=== PATIENT | male | born 1965 | race Caucasian/White ===

== ENCOUNTER 2017-10-14 11:02 | Emergency (ER) | payer MEDICAID, SELFPAY ==
[2017-10-14 11:04] VITALS: BP 123/95; PULSE 106; RESP 20; TEMP 37.3; O2SAT 95; BMI 32.8
--- NOTE | 2017-10-14 11:29 | CT_ITS ---
STUDY: CT ABDOMEN AND PELVIS WITHOUT CONTRAST REASON FOR EXAM: Male, 52 years old. Right flank pain. RADIATION DOSAGE (If Supplied By Facility): CTDIvol = ( 14.02 ) mGy, DLP = ( 830.16 ) mGycm TECHNIQUE: Transaxial images were obtained from the dome of the diaphragm to the symphysis pubis without oral contrast, and without intravenous contrast. Sagittal and coronal images were reconstructed. Individualized dose optimization techniques were used for this CT. COMPARISON: Comparison is made with prior study dated March 05, 2016. FINDINGS: Mild degree of increased linear markings in the lower lobes slightly more prominent on the right side suggestive of bibasilar atelectasis. The visualized portions of the heart are within normal limits. Normal liver. Normal gallbladder and extrahepatic biliary system. Normal spleen. Normal pancreas. Normal bilateral adrenal glands. Punctate calcification in the midpole calyx of the right kidney. Punctate calcifications upper midportion of the left kidney as well as in the lower pole calyx of the left kidney. Normal visualized stomach. Normal small intestine. There are scattered colonic diverticula consistent with diverticulosis. The appendix is visualized and appears normal. Normal abdominal aorta. Normal inferior vena cava. Normal retroperitoneum. Normal urinary bladder. There is evidence of bilateral vasectomies. Normal abdominal wall. There are mild degenerative changes of the visualized lumbar spine. CT/Abdomen/Pelvis without Cont IMPRESSION: Punctate bilateral nonobstructive intrarenal calculi. Electronically Signed: Rl Conway MD at 12:34 EDT Tel [phone], Service support ,
[2017-10-14] MEDS: 0.9% Normal Saline 1,000 ML 1000 ML IV (11:50)
[2017-10-14] MEDS: Ketorolac 30 MG/ML Syringe IV (11:51)
[2017-10-14] MEDS: Ondansetron 4 MG/2 ML Vial IV (11:51)
[2017-10-14 11:56] VITALS: BP 132/90; PULSE 98; RESP 14; O2SAT 97
[2017-10-14 11:57] LABS: Red Blood Cells-Urine 0 SEEN /hpf (0-5)
[2017-10-14 11:59] LABS: Color, Urine Yellow (Yellow); Glucose, Dipstick Normal (Normal); Ketone-Dipstick 5 mg/dl (Negative); Leukocyte Esterase-Dipstick 25 /ul (Negative); Nitrite-Dipstick Negative (Negative); Occult Blood-Urine Negative /ul (Negative); Protein-Dipstick 30 mg/dl (Negative); Specific Gravity, Urine 1.025 (1.002-1.030); Urine Bilirubin Dipstick Negative (Negative); Urine Clarity Clear (Clear); Urine Urobilinogen 8 mg/dl (Normal)
[2017-10-14 12:00] LABS: Absolute Lymphocyte Count 1.19 X10^3/ul (0.83-4.51); Absolute Neutrophil Count 2.5 X10^3/uL (2.0-7.7); Basophil# 0.02 X10^3/uL; Basophil% 0.4 % (0-1); Eosinophil# 0.11 X10^3/uL; Eosinophils% 2.3 % (0-5); Hematocrit 46.5 % (40-54); Hemoglobin 15.8 g/dl (13.0-16.5); Lymphocyte # 1.19 X10^3/ul (4.0); Lymphocyte % 25.1 % (19-41); Mean Corpuscular Hgb 31.5 pg (27.0-32.0); Mean Corpuscular Volume 92.6 fL (80-94); Mean Platelet Vol. 9.3 fl (6.2-12.0); Monocyte# 0.89 X10^3/uL; Monocyte% 18.7 % (0-10); Neutrophil # 2.53 X10^3/uL (2.7-7.7); Neutrophil % 53.3 % (47-70); Platelet Count 233 K/mm3 (150-450); RBC Distribution Width CV 13.2 % (11.6-14.6); RBC Distribution Width SD 43.7 fl (35.1-43.9); Red Blood Count 5.02 M/mm3 (4.6-6.2); White Blood Count 4.8 K/mm3 (4.4-11.0)
[2017-10-14 12:02] LABS: POSITIVE COUNT NO; POSITIVE DIFFERENTIAL NO; POSITIVE MORPHOLOGY NO
[2017-10-14 12:07] LABS: Bacteria 1+ /hpf (None Seen); Mucous, Urine 2+ /hpf (<or=2+); Squamous Epithelial Cells - UA 0-5 SEEN /hpf (0-5); White Blood Cells 0-5 SEEN /hpf (0-5)
[2017-10-14 12:21] LABS: AST(SGOT) 16 U/L (15-37); Alanine Aminotransfer ALT/SGPT 33 U/L (16-61); Albumin, Serum 3.3 g/dL (3.2-5.0); Alkaline Phosphatase 103 U/L (45-117); Anion Gap 6 (5-15); BUN 13 mg/dL (7-18); BUN/Creat Ratio 13.1 RATIO (10-20); Bilirubin, Direct 0.23 mg/dL (0.00-0.30); Chloride 107 mmol/L (98-107); EST Glomerular Filtration Rate 84 mL/min (>60); Est Glom Filt Rate - Afr Amer 102 mL/min (>60); Estimated Creatinine Clearance 90.24 ml/min; Globulin 3.8 g/dL (2.2-4.2); Glucose 99 mg/dL (74-106); Lipase 102 U/L (73-393); Protein, Total 7.1 g/dL (6.4-8.2); Sodium Level 142 mmol/L (136-145)
--- NOTE | 2017-10-14 12:43 | ED.VISSUMM ---
- ER Visit Summary Date of Service: 10/14/17 Chief Complaint: Right flank pain History of Present Illness: The patient is a [address] Thomas. He reports he has right flank pain that began 3 days ago. It radiates around the right lower abdomen. Is a sharp, stabbing pain is 1010 at worst 9-10 currently. Is worsened by nothing relieved by nothing. Reports he been nausea and vomiting 7-8 times. No blood in his emesis. He has had diarrhea twice today. No blood in his stools or black tarry stools. Is also had dysuria and frequency. No hematuria. Reports that this is similar to when he had a kidney stone in the past. Physical Examination: Vitals: Stable. Afebrile. General: Well-nourished and well-developed. Head: Normocephalic atraumatic. Neck: Supple, no lymphadenopathy. No JVD. Nontender. Cardiovascular: Regular rate and rhythm. No murmurs. Respiratory: No respiratory distress. Clear to auscultation bilaterally. Abdominal: Soft, mild left lower quadrant tenderness palpation, nondistended, normal bowel sounds. No guarding, rebound, or peritoneal signs. Back: Mild right CVA tenderness Extremities: Nontender, no edema. Skin: Normal color, no rash. Neurologic: Alert and oriented ?3. Cranial nerves II through XII are intact. Normal strength and sensation. Psych: Normal affect. Test Results: CBC is more for monocytes and 19. Chem-7 is more for calcium 8.0. LFTs are normal. Lipase normal. UA is negative. CT flank shows a normal appendix and no acute disease. Emergency Department Course and Treatment: She was treated morphine, Zofran, Toradol IV. He is resting comfortably. Treatment Plan: An [facility] report was obtained which shows he has active prescriptions for both oxycodone and tramadol. He will be discharged on naproxen and instructed to follow-up with Dr. Thomas in 1 to 2 days if not improving. Disposition: To home in improved and stable condition. Impression: 1. Right flank pain, uncertain cause. This note was generated with [employer] software. It may contain incorrect words, spelling, and punctuation that were not noted in review of the chart prior to signing ED Disposition - Plan for ED Patient: Disposition: Home or Assisted Living Chief Complaint: Flank Pain Instructions: ED Flank Pain Uncertain Cause Prescriptions: Naproxen [Naprosyn] 500 mg PO BID PRN #20 tablet Referrals: Troy Thomas DO [Primary Care Provider] - 3-5 Days if not improving
[2017-10-14 13:02] VITALS: BP 128/85; PULSE 90; RESP 14; O2SAT 99
== END 2017-10-14 13:08 | disposition home or self-care (01) ==
PROVIDERS: Emergency Provider Emergency Medicine; Family Provider Family Medicine; PCP Family Medicine
DX: R10.31 Right lower quadrant pain (principal); R11.2 Nausea with vomiting, unspecified; R19.7 Diarrhea, unspecified; R30.0 Dysuria; R35.0 Frequency of micturition; Z87.442 Personal history of urinary calculi; Z86.718 Personal history of other venous thrombosis and embolism; Z79.82 Long term (current) use of aspirin; Z79.01 Long term (current) use of anticoagulants; Z79.899 Other long term (current) drug therapy
CPT/HCPCS: 74176; 80048; 80076; 81001; 83690; 85025; 96361; 96374; 96375; 99283; J7030; J2405

== ENCOUNTER 2018-02-23 20:56 | Emergency (ER) | payer MEDICAID, SELFPAY ==
[2018-02-23 20:57] VITALS: BP 125/78; PULSE 60; RESP 14; TEMP 36.4; O2SAT 100; BMI 33.2
--- NOTE | 2018-02-23 21:38 | US_ITS ---
STUDY: VENOUS DOPPLER ULTRASOUND - RIGHT LOWER EXTREMITY REASON FOR EXAM: Male, 52 years old. Right sided pain in the plantar area of the foot extending into the posterior calf TECHNIQUE: Ultrasound evaluation of the deep vein system to include mccrary-scale imaging and compression was performed. Mccrary-scale imaging and Doppler sonographic evaluation, including duplex spectral analysis and qualitative color flow sonography, was performed. COMPARISON: None. FINDINGS: Common Femoral Vein: Normal compression, spontaneity and augmentation. Normal color Doppler. Common Femoral Vein/Greater Saphenous Junction: Normal compression, spontaneity and augmentation. Normal color Doppler. Deep Femoral Vein: Normal compression, spontaneity and augmentation. Normal color Doppler. Femoral Proximal: Normal compression, spontaneity and augmentation. Normal color Doppler. Femoral Middle: Normal compression, spontaneity and augmentation. Normal color Doppler. Femoral Distal: Normal compression, spontaneity and augmentation. Normal color Doppler. Popliteal Vein: Normal compression, spontaneity and augmentation. Normal color Doppler. Posterior Tibial Vein: Normal compression, spontaneity and augmentation. Normal color Doppler. Peroneal Vein: Normal compression, spontaneity and augmentation. Normal color Doppler. However examination of the peroneal vein is limited US/Venous Duplex Imag/Limited/Uni IMPRESSION: No sonographic evidence for deep venous thrombosis Electronically Signed: Yassine Mixon, at 22:27 EDT Tel , Service support ,
[2018-02-23] MEDS: HYDROcodone Bitartrate/Apap 5/325 Tablet PO (22:37)
[2018-02-23] MEDS: predniSONE 20 MG Tablet 60 MG PO (22:38)
--- NOTE | 2018-02-23 22:59 | ED.VISSUMM ---
- ER Visit Summary Date of Service: 02/23/18 Chief Complaint: Right foot pain History of Present Illness: The patient is a 52 M who complains of pain in the palm of his right foot for the past several days. He states it is worse first thing in the morning when he gets up. Pain is now radiating up the back of his right calf. He is currently on Eliquis due to clots in his right leg. He denies chest pain or shortness of breath. Physical Examination: Vital signs unremarkable. Patient sitting upright in bed no acute distress. Heart is regular rate and rhythm. Lung sounds are clear. Abdomen is soft nontender. Lower extreme examination reveals reproducible tenderness on the plantar surface of the right foot at the fascial insertion to the calcaneus. There is increased pain with dorsiflexion. He has mild tenderness of the distal calf. There is no significant edema. Test Results: Due to his history of clots, venous ultrasound of the leg was obtained and is negative at this time. Emergency Department Course and Treatment: Patient is given a dose of [place] on prednisone here while we are waiting testing. Clinically the patient has plantar fasciitis. He will be treated with a course of prednisone along with Naprosyn. He is known to Dr. Mat Hamilton will follow up with him as needed. Treatment Plan: [] Disposition: Discharge Impression: Plantar fasciitis right foot This note was generated with [employer] dictation software. It may contain incorrect words, spelling, and punctuation that were not noted in review of the chart prior to signing ED Disposition - Plan for ED Patient: Chief Complaint: Lower Extremity Injury Referrals: Troy Thomas DO [Primary Care Provider] -
--- NOTE | 2018-02-23 23:01 | ED.DEP ---
ED Disposition - Plan for ED Patient: Disposition: Home or Assisted Living Chief Complaint: Lower Extremity Injury Instructions: ED Plantar Fasciitis Prescriptions: Naproxen [Naprosyn] 500 mg PO BID PRN PRN #20 tablet PRN Reason: Pain Prednisone 10 mg PO UD #33 tablet Referrals: Mat Hamilton MD [STAFF PHYSICIAN] - As Needed
[2018-02-23 23:07] VITALS: RESP 18
== END 2018-02-23 23:07 | disposition home or self-care (01) ==
PROVIDERS: Emergency Provider Emergency Medicine; Family Provider Family Medicine; PCP Family Medicine
DX: M72.2 Plantar fascial fibromatosis (principal); E78.00 Pure hypercholesterolemia, unspecified; Z86.718 Personal history of other venous thrombosis and embolism; Z86.711 Personal history of pulmonary embolism; Z87.442 Personal history of urinary calculi; Z86.79 Personal history of other diseases of the circulatory system; Z79.01 Long term (current) use of anticoagulants; Z79.82 Long term (current) use of aspirin; Z79.899 Other long term (current) drug therapy; Z87.891 Personal history of nicotine dependence
CPT/HCPCS: 93971; 99283

== ENCOUNTER 2018-04-26 20:45 | Emergency (ER) | payer MEDICAID, SELFPAY ==
[2018-04-26 20:45] VITALS: BP 124/85; PULSE 99; RESP 14; TEMP 36.6; O2SAT 97; BMI 30.8
[2018-04-26 21:46] VITALS: BP 141/98; PULSE 81; RESP 17; O2SAT 98
--- NOTE | 2018-04-26 22:08 | EKG12_ITS ---
Test Reason : CP Blood Pressure : / mmHG Vent. Rate : 096 BPM Atrial Rate : 096 BPM P-R Int : 156 ms QRS Dur : 092 ms QT Int : 332 ms P-R-T Axes : 041 066 054 degrees QTc Int : 419 ms Normal sinus rhythm Normal ECG Confirmed by ABHAY JOSE, MARY ([id number]), school photograph editor DEBBY MANNING ([id number]) on 04/28/2018 9:30:52 AM Referred By: RENATA Confirmed By:MARY BLANK MD
--- NOTE | 2018-04-26 22:18 | RAD_ITS ---
STUDY: X-RAY CHEST REASON FOR EXAM: Male, 52 years old. Chest pain. TECHNIQUE: Single AP portable view of the chest. COMPARISON: 09/06/2016. FINDINGS: The lungs are clear and expanded. There is no demonstrated pleural abnormality. There is borderline cardiomegaly. Normal mediastinum and darby. Normal visualized pulmonary arteries. Normal visualized aortic arch and descending thoracic aorta. Normal visualized thoracic spine. Normal visualized ribs, clavicles, and shoulders. There is no demonstrated abnormality of the visualized soft tissue structures of the upper abdomen. RAD/Chest 1 View (Portable) IMPRESSION: No acute chest disease. Electronically Signed: Keith Alford MD at 22:29 EDT , Service support ,
[2018-04-26] MEDS: Aspirin 81 MG TAB.CHEW 324 MG PO (22:25)
[2018-04-26 22:27] VITALS: BP 141/94; PULSE 80; RESP 19; O2SAT 98
[2018-04-26 22:38] LABS: Absolute Lymphocyte Count 2.41 X10^3/ul (0.83-4.51); Basophil# 0.03 X10^3/uL; Basophil% 0.5 % (0-1); Eosinophil# 0.19 X10^3/uL; Eosinophils% 2.9 % (0-5); Hematocrit 41.1 % (40-54); Hemoglobin 13.6 g/dl (13.0-16.5); Lymphocyte # 2.41 X10^3/ul (4.0); Lymphocyte % 36.7 % (19-41); Mean Corp Hgb Conc 33.1 g/gl (32-36); Mean Corpuscular Hgb 30.8 pg (27.0-32.0); Mean Platelet Vol. 10.1 fl (6.2-12.0); Monocyte# 0.96 X10^3/uL; Monocyte% 14.6 % (0-10); Neutrophil # 2.98 X10^3/uL (2.7-7.7); Neutrophil % 45.3 % (47-70); Platelet Count 225 K/mm3 (150-450); RBC Distribution Width CV 13.5 % (11.6-14.6); RBC Distribution Width SD 45.9 fl (35.1-43.9); Red Blood Count 4.42 M/mm3 (4.6-6.2); White Blood Count 6.6 K/mm3 (4.4-11.0)
[2018-04-26 22:39] LABS: POSITIVE COUNT NO; POSITIVE DIFFERENTIAL NO; POSITIVE MORPHOLOGY NO
[2018-04-26 22:42] LABS: Prothrombin Time (Protime)PT. 13.5 SECONDS (11.7-14.9)
[2018-04-26 22:43] LABS: Partial Thromboplast Time 33.4 Seconds (24.1-36.2)
[2018-04-26 22:46] LABS: D-Dimer Quantitative (DVT/PE) 0.92 FEU/ug/m (0.27-0.49)
[2018-04-26 22:47] LABS: Anion Gap 6 (5-15); BUN 11 mg/dL (7-18); BUN/Creat Ratio 11.6 RATIO (10-20); Calcium,Total 8.1 mg/dL (8.5-10.1); Chloride 108 mmol/L (98-107); Creatinine, Serum 0.95 mg/dL (0.70-1.30); EST Glomerular Filtration Rate 89 mL/min (>60); Est Glom Filt Rate - Afr Amer 107 mL/min (>60); Estimated Creatinine Clearance 94.99 ml/min; Glucose 90 mg/dL (74-106); Sodium Level 141 mmol/L (136-145)
[2018-04-26 23:06] VITALS: BP 143/87; PULSE 70; RESP 17; O2SAT 98
--- NOTE | 2018-04-26 23:35 | CT_ITS ---
STUDY: CTA CHEST REASON FOR EXAM: Male, 53 years old. Chest pain. Elevated d-dimer. RADIATION DOSAGE (If Supplied By Facility): CTDIvol = ( 16.17 ) mGy, DLP = ( 696.83 ) mGycm TECHNIQUE: The examination was performed with the intravenous administration of 100ml ml of Isovue 370 contrast material. Post-processing of the angiographic images was performed, with multiplanar reformation and 3D reconstruction. Individualized dose optimization techniques were used for this CT. COMPARISON: Chest x-ray April 26, 2018. CTA chest September 06, 2016. CTA chest January 01, 2016. FINDINGS: Normal enhancement of the main pulmonary artery and right and left pulmonary arteries. Normal enhancement of the bilateral peripheral pulmonary arteries. There is no demonstrated pulmonary embolism. Normal thoracic aorta and visualized great vessels. There is no demonstrated aortic dissection. There is now an elongated simple fluid collection within the anterior mediastinum, attenuation 4 Hounsfield units adjacent to the lateral aspect of aortic arch and measuring 5.7 x 1.4 cm increased in size since September 2016 and decreased in size since December 2015, axial image 26 series 2 and coronal images 137 through 164. Normal heart and pericardium. Normal mediastinum. Normal hilar regions. Normal visualized trachea and bronchi. The lungs are well expanded. Normal pulmonary parenchyma. Normal pleura. Normal chest wall structures. Mild degenerative changes of the thoracic spine. Normal visualized upper abdomen. CT/CTA Chest W/WO Contrast IMPRESSION: No acute findings in the chest, without a demonstrated pulmonary embolism or arterial dissection. 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 Electronically Signed: Jason Bueno MD at 0:51 EDT , Service support ,
--- NOTE | 2018-04-26 23:59 | ED.VISSUMM ---
- ER Visit Summary Date of Service: 04/26/18 Chief Complaint: Chest pain History of Present Illness: The patient is a 52 M who presents with chest pain for the past 2-3 hours. Patient states the pain began suddenly. Patient describes the pain as burning and stabbing. Patient states the pain is over the left side of his chest. Patient states nothing seems to make the pain better or worse. Patient states he did have an episode of diaphoresis and shortness of breath when the pain began. Patient also states he felt lightheaded at that time. Patient admits to a cough but denies any sputum production. Patient denies any fevers or chills. Patient denies any nausea or vomiting. Patient states he also had one episode of palpitations where he felt like his heart skips a beat. Patient has a history of PE and is on Eliquis. Physical Examination: Vital signs are stable. Patient is afebrile. Patient is in no acute distress. Oral mucosa is pink and moist. Neck is supple. Trachea is midline. There is no JVD or lymphadenopathy noted. Heart was regular rate and rhythm. Lungs are clear and equal bilaterally. There is good respiratory effort noted. Abdomen is soft. Bowel sounds are normal. There is no tenderness. Cranial nerves II through XII are intact. There are no focal motor or sensory deficits noted. The remaining physical exam is within normal limits. Test Results: EKG showed normal sinus rhythm with a rate of 96. There are no acute ST or T wave changes. D-dimer was slightly elevated at 0.92. CBC, basic metabolic profile, troponin were within normal limits. CTA of the chest was obtained due to the elevated d-dimer and was negative. Emergency Department Course and Treatment: Patient felt better on reevaluation. Patient was instructed to follow-up with his primary care physician in 7-10 days. Patient understood and was agreeable with the plan. All questions were answered. Disposition: Discharged home Impression: Chest pain of uncertain etiology This note was generated with [employer] dictation software. It may contain incorrect words, spelling, and punctuation that were not noted in review of the chart prior to signing ED Disposition - Plan for ED Patient: Disposition: Home or Assisted Living Chief Complaint: Chest Pain Diagnosis: Chest pain Instructions: ED Chest Pain Atypical Unkn Cause Referrals: Troy Thomas DO [Primary Care Provider] -
[2018-04-27 00:21] VITALS: BP 148/105; PULSE 72; RESP 18; O2SAT 97
[2018-04-27 01:14] VITALS: BP 147/95; PULSE 73; RESP 17; O2SAT 98
--- NOTE | 2018-04-27 01:15 | ED.RN ---
IV DC'ED, CATHETER INTACT, SMALL GAUZE DRESSING PLACED. DISCHARGE INSTRUCTIONS GIVEN TO AND REVIEWED WITH PATIENT, PATIENT DENIES QUESTIONS OR CONCERNS AND VOICES UNDERSTANDING OF DISCHARGE INSTRUCTIONS. PT AMBULATES OUT OF ROOM WITHOUT DIFFICULTY.
== END 2018-04-27 01:16 | disposition home or self-care (01) ==
PROVIDERS: Emergency Provider Emergency Medicine; Family Provider Family Medicine; PCP Family Medicine
DX: R07.9 Chest pain, unspecified (principal); R61 Generalized hyperhidrosis; R42 Dizziness and giddiness; R06.00 Dyspnea, unspecified; R05 Cough; R00.2 Palpitations; R79.89 Other specified abnormal findings of blood chemistry; G47.30 Sleep apnea, unspecified; Z86.711 Personal history of pulmonary embolism; Z79.01 Long term (current) use of anticoagulants; Z79.82 Long term (current) use of aspirin; Z79.899 Other long term (current) drug therapy
CPT/HCPCS: 71045; 71275; 80048; 84484; 85025; 85379; 85610; 85730; 93005; 99285; Q9967; A4216

== ENCOUNTER 2018-10-25 09:14 | Emergency (ER) | payer MEDICARE, MEDICAID, SELFPAY ==
[2018-10-13 15:26] VITALS: BMI 34.0
[2018-10-25 09:17] VITALS: BP 147/87; PULSE 114; RESP 18; TEMP 36.6; O2SAT 99; BMI 32.5
--- NOTE | 2018-10-25 09:33 | ED.VISSUMM ---
- ER Visit Summary Date of Service: 10/25/18 Chief Complaint: Cough and congestion History of Present Illness: The patient is a 53 M who presents with cough and congestion that has been getting worse over the past 3 days. Patient states she has been coughing up some green sputum. Patient states there is also some blood streaks in the sputum. Patient states he has had some epistaxis recently. Patient states he has pain in his chest with coughing. Patient denies any fevers. Patient admits to a headache. Physical Examination: Vital signs are stable except for mild tachycardia of 114. Patient is afebrile. Patient is in no acute distress. Tympanic membranes are clear bilaterally. Oral mucosa is pink and moist. Oropharynx shows some mild erythema and postnasal drainage. Nasal mucosa is congested. Neck is supple. Trachea is midline. There is no JVD noted. Heart was regular and tachycardic. Lungs are clear and equal bilaterally. Abdomen is soft. Bowel sounds are normal. There is no tenderness. Cranial nerves II through XII are intact. There are no focal motor or sensory deficits noted. Test Results: Rapid strep test was obtained and was positive. PA and lateral chest x-ray shows a right upper lobe infiltrate. Emergency Department Course and Treatment: Patient was given a prescription for Zithromax. Patient was instructed to drink plenty of fluids. Patient was instructed to take Tylenol or ibuprofen as needed for any fevers or chills. Patient was instructed to follow-up with his primary care physician in 5-7 days. Patient understood and was agreeable with the plan. All questions were answered. Disposition: Discharge home Impression: 1. Strep pharyngitis 2. Community-acquired pneumonia This note was generated with [employer] dictation software. It may contain incorrect words, spelling, and punctuation that were not noted in review of the chart prior to signing ED Disposition - Plan for ED Patient: Disposition: Home or Assisted Living Diagnosis: Strep pharyngitis, Community acquired pneumonia Instructions: ED Pneumonia Adult, ED Strep Pharyngitis Conf Prescriptions: Azithromycin [Zithromax Z-Brad] 250 mg PO UD #1 box Referrals: Troy Thomas DO [Primary Care Provider] - 5-7 Days
--- NOTE | 2018-10-25 09:40 | RAD_ITS ---
STUDY: X-RAY CHEST REASON FOR EXAM: Male, 53 years old. Cough. TECHNIQUE: PA and lateral views of the chest. COMPARISON: Comparison is made with prior study dated April 26, 2018. FINDINGS: Focal infiltrate in the anterior aspect of the right upper lobe. Stable scarring in the lingular segment of the left upper lobe. Normal size heart. Normal mediastinum and darby. Normal visualized pulmonary arteries. There is atherosclerotic tortuosity of the aortic arch and descending thoracic aorta. There are diffuse degenerative changes of the visualized thoracic spine. Normal visualized ribs, clavicles, and shoulders. There is no demonstrated abnormality of the visualized soft tissue structures of the upper abdomen. RAD/Chest PA and Lateral IMPRESSION: Focal infiltrate in the anterior aspect of the right upper lobe. Stable scarring in the lingular segment of the left upper lobe. Electronically Signed: Rl Conway, at 10:15 EDT , Service support ,
--- NOTE | 2018-10-25 10:04 | ED.RN ---
LAB RESULTED POSITIVE STREP
[2018-10-25 10:51] VITALS: RESP 19
== END 2018-10-25 10:53 | disposition home or self-care (01) ==
PROVIDERS: Emergency Provider Emergency Medicine; Family Provider Family Medicine; PCP Family Medicine
DX: J02.0 Streptococcal pharyngitis (principal); J18.9 Pneumonia, unspecified organism
CPT/HCPCS: 71046; 87077; 87880; 99282

== ENCOUNTER 2018-10-27 08:26 | Inpatient (IN) | payer MEDICARE, MEDICAID, SELFPAY ==
[2018-10-27] VITALS (14 sets, daily range): BP systolic 111–146; BP diastolic 71–98; PULSE 86–145; RESP 18–28; TEMP 36.6–39.4; O2SAT 94–96; BMI 33.3; BMI 31.6; BMI 31.7
--- NOTE | 2018-10-27 08:34 | RAD_ITS ---
STUDY: X-RAY CHEST REASON FOR EXAM: Male, 53 years old. Productive cough and fever. TECHNIQUE: Single AP portable view of the chest. COMPARISON: Comparison is made with prior study dated October 25, 2018. FINDINGS: EKG electrodes are seen. Since prior study, there has been progressive infiltration in the right perihilar and right upper lobe region as well as in the right lower lobe. Mild increased markings in the left lower lobe. Radiographic follow-up until resolution is recommended. There is no demonstrated pleural abnormality. Normal size heart. Normal mediastinum and darby. Normal visualized pulmonary arteries. There is atherosclerotic tortuosity of the aortic arch and descending thoracic aorta. There are diffuse degenerative changes of the visualized thoracic spine. Normal visualized ribs, clavicles, and shoulders. There is no demonstrated abnormality of the visualized soft tissue structures of the upper abdomen. RAD/Chest 1 View (Portable) IMPRESSION: Progressive infiltration in the right perihilar region as well as in the right upper lobe and right lower lobe. Radiographic follow-up is recommended. Mild increased markings at the left lung base suggestive of scarring. Electronically Signed: Rl Conway, at 10:03 EDT , Service support ,
--- NOTE | 2018-10-27 08:34 | EKG12_ITS ---
Test Reason : SOB Blood Pressure : / mmHG Vent. Rate : 128 BPM Atrial Rate : 128 BPM P-R Int : 138 ms QRS Dur : 088 ms QT Int : 302 ms P-R-T Axes : 047 105 051 degrees QTc Int : 440 ms Sinus tachycardia Rightward axis Borderline ECG Confirmed by ABHAY JOSE, MARY ([id number]), brands editor ABBEY GARVEY ([id number]) on 10/28/2018 1:07:26 PM Referred By: STEFANIA Confirmed By:MARY BLANK MD
--- NOTE | 2018-10-27 08:42 | ED.VIS.GEN ---
History of Present Illness Chief Complaint: Shortness of Breath Detail of Chief Complaint: Symptoms worse since Thursday Informant: Patient, Significant Other Onset: Days Context: Sudden Onset Timing: Continuous Quality: Shortness of breath, wheezing, JEAN, productive cough Location: Respiratory generalized Current Severity: Moderate Maximum Severity: Severe Worsened by: Activity Relieved by: Nothing Associated Symptoms: Fever, chills and review review of systems Narrative: Patient is a middle-aged male who is not a smoker who was seen on Thursday and diagnosed with strep pharyngitis and community acquired pneumonia. He was treated with Zithromax. He presents because he is more short of breath and his cough is worse. He also reports fever and chills. He complains of mild headache without photophobia, neck pain or neck stiffness. He denies rhinorrhea. He denies ear pain, decreased hearing or tinnitus. He does report dyspnea on exertion. Denies orthopnea or PND. He denies leg pain, swelling discoloration. He does have history of DVT and is on Eliquis. He denies any urologic or GI symptoms. - Past Medical History (1) Community acquired pneumonia Status: Acute (2) Strep pharyngitis Status: Acute (3) Bilateral pulmonary embolism Status: Acute (4) DVT (deep venous thrombosis) Status: Chronic (5) Hyperlipidemia Status: Chronic (6) Hypertension Status: Chronic Past Medical History - Allergies and Home Meds Allergies/Adverse Reactions: Allergies venom-honey bee [bee venom (honey bee)] Allergy (Verified 10/25/18 09:16) Anaphylaxis Primary Care Physician: Troy Thomas DO [Primary Care Provider] - Prior records reviewed: Yes Past Medical History: - - Recent ER visit, diagnosis and treatment Surgical History: no surgical history Lives: Spouse/ Significant Other Smoking Status: Never smoker Alcohol: None - Family History Maternal Family History: Family History (Last Reviewed 10/13/18 @ 15:26 by Kelly Santana) Mother Hypertension Diabetes Father Lung cancer Heart disease Family History: Reports: Diabetes Paternal Family History: Family History (Last Reviewed 10/13/18 @ 15:26 by Kelly Santana) Mother Hypertension Diabetes Father Lung cancer Heart disease Family History: Reports: Heart Disease Review of Systems General: Reports: Chills, Fever, Malaise, Sweats Eyes: Denies: Visual changes - bilaterally, Blurred Vision - bilaterally, Diplopia ENT: Reports: Sore throat. Denies: Bilateral ear pain, Rhinorrhea Cardiovascular: Denies: Chest pain, Palpitations Respiratory: Reports: Dyspnea, Cough, Sputum, Dyspnea on exertion. Denies: Orthopnea, Paroxysmal nocturnal dyspnea Gastrointestinal: Denies: Abdominal pain, Nausea, Vomiting, Diarrhea, Melena, Hematochezia Genitourinary: Denies: Dysuria, Hematuria, Frequency Musculoskeletal: Denies: Back pain, Extremity Pain Skin: Denies: Rash, Wounds Neurological: Denies: Headache, Weakness, Parasthesia, Numbness Hematologic: Denies: Easy bruising, Easy bleeding Allergy: Denies: Uticaria Physical Exam Vital Signs/Narrative: Vital Signs Temp Pulse Resp BP Pulse Ox 10/27/18 08:27 102.9 F H 124 H 24 H 146/98 H 94 Inital Vital Signs reviewed: Yes General: Well nourished, Well developed, Acute Distress Head: Normocephalic, Atraumatic Eyes: Perrl, EOMI. Negative for: Pale conjunctiva, Scleral icterus ENT: No rhinorrhea, TM's clear, Dry mucous membranes Neck: Supple, Nontender Cardiovascular: Regular rhythm, No murmurs, Normal S1, Normal S2, Tachycardia Respiratory: Chest nontender, Rales, Wheezing, Diminished, Decreased Air Movement Abdomen: Soft, Nontender, Nondistended, Normal bowel sounds Back: Nontender, Normal Inspection Extremities: Nontender, No edema. Negative for: Edema, Calf Tenderness Skin: Normal color, No rash. Negative for: Cyanosis, Jaundice Neurological: Alert, Oriented x3, Cranial nerves II-XII grossly intact, Normal Strength, Normal Sensation, Normal Gait Psychological: Normal affect, Normal Mood Diagnostic/Tx/Re-eval Chest X-Ray - ED: 2 View, Read by ED Physician, Normal, Heart, Mediastinum, Bony Structures, Right Infiltrate 10/27/18 08:34 Chest PA and Lateral [RAD] Stat Laboratory Results 10/27/18 10/27/18 10/27/18 08:52 08:52 08:52 WBC 15.6 H RBC 4.47 L Hgb 13.7 Hct 41.0 MCV 91.7 MCH 30.6 MCHC 33.4 RDW 12.9 RDW Differential 42.3 Plt Count 416 MPV 9.4 Immature Gran % (Auto) 0.400 Neut % (Auto) 80.0 H Lymph % (Auto) 8.2 L [place] % (Auto) 10.9 H Eos % (Auto) 0.4 Baso % (Auto) 0.1 Absolute Neuts (auto) 12.5 H Absolute Lymphs (auto) 1.27 Total Counted Not Reportable Diff Path Review December foll PT 18.9 H INR 1.6 APTT 42.2 H Sodium 136 Potassium 4.3 Chloride 99 Carbon Dioxide 23.0 Anion Gap 14 BUN 16 Creatinine 1.26 Estim Creat Clear Calc 70.81 Est GFR (MDRD) Af Amer 77 Est GFR (MDRD) Non-Af 64 BUN/Creatinine Ratio 12.7 Glucose 113 H Lactic Acid Calcium 8.6 Total Bilirubin 2.50 H AST 22 ALT 33 Alkaline Phosphatase 137 H Total Protein 7.8 Albumin 2.6 L Globulin 5.2 H Albumin/Globulin Ratio 0.5 L 10/27/18 08:52 WBC RBC Hgb Hct MCV MCH MCHC RDW RDW Differential Plt Count MPV Immature Gran % (Auto) Neut % (Auto) Lymph % (Auto) [place] % (Auto) Eos % (Auto) Baso % (Auto) Absolute Neuts (auto) Absolute Lymphs (auto) Total Counted Diff Path Review PT INR APTT Sodium Potassium Chloride Carbon Dioxide Anion Gap BUN Creatinine Estim Creat Clear Calc Est GFR (MDRD) Af Amer Est GFR (MDRD) Non-Af BUN/Creatinine Ratio Glucose Lactic Acid 2.6 H Calcium Total Bilirubin AST ALT Alkaline Phosphatase Total Protein Albumin Globulin Albumin/Globulin Ratio - Rhythm Strip Rhythm Strip: Sinus Rhythm Rate: 132 Ectopy: None - EKG Initial EKG Interpretation: Sinus Tachycardia - Circular rate 128. AL interval, QRS duration and QT interval normal. [place] to the right. No ischemic changes noted. - Medical Decision Making Since patient is tachycardic, tachypneic and febrile and has document infiltrate on x-ray obtained October 25 will treat for community acquired pneumonia failed outpatient. Patient has 3 of the 5 Sirs criteria. Sepsis workup was undertaken. Will obtain respiratory panel to determine if this is viral versus bacterial. He was started on Rocephin 1 g IV piggyback and azithromycin 500 mg IV piggyback. He also received DuoNeb and albuterol treatments. Doubt pulmonary embolus. Patient was reassessed at 911. He is still tachypneic, tachycardic and febrile. Wheezing noted throughout. He was reassessed at 0940. His heart rate has decreased to 126. His respiratory rate is 26 which is improved. He still has wheezing. The hospitalist has been paged for admission. - Critical Care Time Critical care time (excluding procedures): 30-74 minutes - 31 minutes, Discussing w/Patient &/or Family/[employer], Discussing w/Consultants, Arranging Admission or Transfer, Performing Direct Patient Care at Bedside ED Disposition - Plan for ED Patient: Disposition: [facility] Diagnosis: Severe sepsis, Right middle lobe pneumonia, Sinus tachycardia by electrocardiogram, Bronchospasm, acute, Failure of outpatient treatment, Strep pharyngitis, Anticoagulant long-term use Referrals: Troy Thomas DO [Primary Care Provider] -
[2018-10-27] MEDS: Ipratropium/Albuterol Sulfate 3 ML AMPUL.NEB INHALATION ×4 (08:52→23:15)
[2018-10-27] MEDS: Albuterol 2.5 MG/3 ML VIAL.NEB. INHALATION ×2 (08:52)
[2018-10-27] MEDS: predniSONE 20 MG Tablet 60 MG PO (09:19)
[2018-10-27] MEDS: Ceftriaxone 1 GM/50 ML BAG IV (09:19)
[2018-10-27 09:20] LABS: Absolute Lymphocyte Count 1.27 X10^3/ul (0.83-4.51); Absolute Neutrophil Count 12.5 X10^3/uL (2.0-7.7); Basophil# 0.02 X10^3/uL; Basophil% 0.1 % (0-1); Eosinophil# 0.06 X10^3/uL; Eosinophils% 0.4 % (0-5); Hemoglobin 13.7 g/dl (13.0-16.5); Lymphocyte # 1.27 X10^3/ul (4.0); Lymphocyte % 8.2 % (19-41); Mean Corp Hgb Conc 33.4 g/gl (32-36); Mean Corpuscular Hgb 30.6 pg (27.0-32.0); Mean Corpuscular Volume 91.7 fL (80-94); Mean Platelet Vol. 9.4 fl (6.2-12.0); Monocyte% 10.9 % (0-10); Neutrophil # 12.45 X10^3/uL (2.7-7.7); Platelet Count 416 K/mm3 (150-450); RBC Distribution Width CV 12.9 % (11.6-14.6); RBC Distribution Width SD 42.3 fl (35.1-43.9); Red Blood Count 4.47 M/mm3 (4.6-6.2); White Blood Count 15.6 K/mm3 (4.4-11.0)
[2018-10-27 09:22] LABS: ALB/GLOB Ratio 0.5 RATIO (0.9-2.4); AST(SGOT) 22 U/L (15-37); Alanine Aminotransfer ALT/SGPT 33 U/L (16-61); Albumin, Serum 2.6 g/dL (3.2-5.0); Alkaline Phosphatase 137 U/L (45-117); Anion Gap 14 (5-15); BUN 16 mg/dL (7-18); BUN/Creat Ratio 12.7 RATIO (10-20); Calcium,Total 8.6 mg/dL (8.5-10.1); Chloride 99 mmol/L (98-107); Creatinine, Serum 1.26 mg/dL (0.70-1.30); Differential Indicated SCAN CRITERIA MET; EST Glomerular Filtration Rate 64 mL/min (>60); Est Glom Filt Rate - Afr Amer 77 mL/min (>60); Estimated Creatinine Clearance 70.81 ml/min; Globulin 5.2 g/dL (2.2-4.2); Glucose 113 mg/dL (74-106); POSITIVE COUNT NO; POSITIVE DIFFERENTIAL YES; POSITIVE MORPHOLOGY NO; Potassium 4.3 mmol/L (3.5-5.1); Protein, Total 7.8 g/dL (6.4-8.2); Sodium Level 136 mmol/L (136-145)
[2018-10-27 09:29] LABS: International Normalized Ratio 1.6; Partial Thromboplast Time 42.2 Seconds (24.1-36.2); Prothrombin Time (Protime)PT. 18.9 SECONDS (11.7-14.9)
[2018-10-27 09:37] LABS: Lactic Acid 2.6 mmol/L (0.4-2.0)
--- NOTE | 2018-10-27 10:04 | NURSING ---
DR DANA AGUIAR
--- NOTE | 2018-10-27 10:07 | NURSING ---
PCU STEP DOWN DANA SEVERE SEPSIS, PNEUMONIA, TACHYCARDIA, BRONCHOSPASM
[2018-10-27] MEDS: guaiFENesin 1,200 MG Tablet 1200 MG PO ×2 (11:12→22:56)
[2018-10-27] MEDS: 0.9% Normal Saline 1,000 ML 150 ML IV ×2 (11:12→22:55)
--- NOTE | 2018-10-27 12:19 | PCM.HP.STD ---
Problem List (1) Community acquired pneumonia Status: Acute (2) Strep pharyngitis Status: Acute (3) Severe sepsis Status: Acute (4) Right middle lobe pneumonia Status: Acute (5) Sinus tachycardia by electrocardiogram Status: Acute (6) Bronchospasm, acute Status: Acute (7) Failure of outpatient treatment Status: Acute (8) Anticoagulant long-term use Status: Acute (9) Non compliance with medical treatment Status: Chronic (10) Bilateral pulmonary embolism Status: Acute (11) DVT (deep venous thrombosis) Status: Chronic Qualifiers: DVT location: lower extremity Chronicity: chronic (12) Chest pain Status: Resolved (13) Hyperlipidemia Status: Chronic (14) Hypertension Status: Chronic History of Present Illness Date of Admission: 10/27/18 Chief Complaint: Shortness of breath and fever for 2 weeks The patient is a 53 year old M with history of DVT and PE on Eliquis came to ER with progressive worsening of shortness of breath, cough with greenish yellow sputum, runny nose, sore throat and URI symptoms, respiratory distress and on no fever for 2 weeks. Patient was seen in ER on 10/25 and was sent home on Z-Brad but he did not feel improvement and has gotten worse in fact. Patient denies history of COPD, smoking or previous PFT. In ED, patient is tachycardic 116/min, tachypneic RR 24/min, leukocytosis but no hypoxia. Chest x-ray shows progressive infiltration in right perihilar region, right upper lobe and middle lobe. EKG shows sinus tachycardia at 128 bpm with right axis deviation suggestive of possible right ventricular hypertrophy. Patient had echo in 06/2015 reported as normal LV size and thickness, EF 65%, normal right and left atrium, no significant valvular abnormality. Patient started on IV fluid normal saline, ceftriaxone, Zithromax and was given bronchodilator in ER and admitted to PCU [] Past Medical History Past Medical History (Chronic Problems): Chronic Problems (Last Reviewed 10/13/18 @ 15:26 by Kelly Santana) Non compliance with medical treatment (Chronic) DVT (deep venous thrombosis) (Chronic) Hyperlipidemia (Chronic) Hypertension (Chronic) Medical History: Medical History (Last Reviewed 10/13/18 @ 15:26 by Kelly Santana) Arthritis M19.90 Deep vein thrombosis (DVT) of right lower extremity I82.401 History of pneumonia Z87.01 Hypoglycemia E16.2 Kidney stone N20.0 Allergies venom-honey bee [bee venom (honey bee)] Allergy (Verified 10/25/18 09:16) Anaphylaxis Home Medications: Ambulatory Orders Medication Instructions Recorded Albuterol IH (ProAir) [Proair Hfa] 2 puff INHALATION Q4H PRN PRN 11/29/15 Budesonide/Formoterol 80-4.5 2 puff INHALATION BID 11/29/15 [Symbicort 80-4.5 Mcg Inhaler] Apixaban [Eliquis] 2.5 mg PO BID #60 tab 04/14/18 Azithromycin [Zithromax Z-Brad] 250 mg PO UD #1 box 10/25/18 Surgical History: Surgical History (Last Reviewed 10/13/18 @ 15:26 by Kelly Santana) History of bilateral inguinal hernia repair Z98.890, Z87.19 History of hernia repair Z98.890, Z87.19 History of tonsillectomy Z98.890, Z90.89 History of umbilical hernia repair Z98.890, Z87.19 Surgical History: no surgical history Lives: Spouse/ Significant Other Smoking Status: Never smoker Alcohol: None - *Family History Maternal Family History: Family History (Last Reviewed 10/13/18 @ 15:26 by Kelly Santana) Mother Hypertension Diabetes Father Lung cancer Heart disease History Items: Diabetes Paternal Family History: Family History (Last Reviewed 10/13/18 @ 15:26 by Kelly Santana) Mother Hypertension Diabetes Father Lung cancer Heart disease History Items: Heart Disease Review of Systems Constitutional: Reports: Anorexia, Chills, Fever, Malaise, Weakness, Fatigue HEENT: Reports: Post Nasal Drip, Sinus Congestion, Sinus Drainage. Denies: Head Aches Cardiovascular: Denies: Chest Pain, Palpitations Respiratory: Reports: Cough, Shortness of breath at rest, Shortness of breath upon exertion, Sputum production Gastrointestinal: Denies: Abdominal Pain, Nausea, Vomiting Genitourinary: Denies: Dysuria Musculoskeletal: Denies: Joint Pain, Joint Tenderness Skin: Denies: Rash, Wounds Neurological: Denies: Numbness, Tingling, Focal weakness Psychiatric: Denies: Anxiety, Depression, Homicidal Ideations, Suicidal Ideations Hematologic/ Lymphatic: Denies: Easy Bruising, Easy Bleeding VTE Information - Inpt Only VTE Present on Admission: No VTE Mechan Device Prophylaxis: None VTE Pharm Prophylaxis ordered?: Yes Patient Problems: Active and Suspected Problems (Last Reviewed 10/13/18 @ 15:26 by Kelly Santana) Strep pharyngitis (Acute) Severe sepsis (Acute) Right middle lobe pneumonia (Acute) Sinus tachycardia by electrocardiogram (Acute) Bronchospasm, acute (Acute) Failure of outpatient treatment (Acute) Anticoagulant long-term use (Acute) - Physical Exam General: Alert, Oriented x3, Cooperative HEENT: Atraumatic, PERRLA, EOMI, Normocephalic Oral: No Gingival or Mucosal Lesions/ Ulcerations, Dry Mucosa, - - tonsils have been removed. Neck: Supple, No JVD, Negative Carotid Bruits Lungs: Diminished - Air entry is diminished, Rales, Short of Breath Cardiovascular: Regular Rhythm, Normal S1, Normal S2, No murmurs, Tachycardic Abdomen: Bowel Sounds Present, Soft, Non Tender, Non-Distended Extremities: No edema, Capillary Refill Less than 3 Seconds Skin: No rashes, No breakdown Musculoskeletal: No Tenderness to Palpation of Joints or Extremities Lymphatic: No Cervical, Supraclavicular, or Inguinal Adenopathy Neurological: Cranial nerves II-XII grossly intact, Deep Tendon Reflexes 2+/4 and Symmetrical, Neuro grossly intact, Motor Exam 5/5 strength throughout Psych/Mental Status: Normal Affect, Appropriate Vital Signs Temp Pulse Resp BP Pulse Ox 98.5 F 116 H 18 121/71 H 95 10/27/18 11:03 10/27/18 11:26 10/27/18 11:03 10/27/18 11:03 10/27/18 11:03 Oxygen Delivery Method Room Air Weight: 220 lb 14.451 oz Body Mass Index (BMI) 31.6 Laboratory Tests Past 24 Hrs 10/27/18 10/27/18 10/27/18 08:52 08:52 08:52 WBC 15.6 H RBC 4.47 L Hgb 13.7 Hct 41.0 MCV 91.7 MCH 30.6 MCHC 33.4 RDW 12.9 RDW Differential 42.3 Plt Count 416 MPV 9.4 Immature Gran % (Auto) 0.400 Neut % (Auto) 80.0 H Lymph % (Auto) 8.2 L [place] % (Auto) 10.9 H Eos % (Auto) 0.4 Baso % (Auto) 0.1 Absolute Neuts (auto) 12.5 H Absolute Lymphs (auto) 1.27 Total Counted Not Reportable Diff Path Review December foll PT 18.9 H INR 1.6 APTT 42.2 H Sodium 136 Potassium 4.3 Chloride 99 Carbon Dioxide 23.0 Anion Gap 14 BUN 16 Creatinine 1.26 Estim Creat Clear Calc 70.81 Est GFR (MDRD) Af Amer 77 Est GFR (MDRD) Non-Af 64 BUN/Creatinine Ratio 12.7 Glucose 113 H Lactic Acid Calcium 8.6 Total Bilirubin 2.50 H AST 22 ALT 33 Alkaline Phosphatase 137 H Total Protein 7.8 Albumin 2.6 L Globulin 5.2 H Albumin/Globulin Ratio 0.5 L 10/27/18 08:52 WBC RBC Hgb Hct MCV MCH MCHC RDW RDW Differential Plt Count MPV Immature Gran % (Auto) Neut % (Auto) Lymph % (Auto) [place] % (Auto) Eos % (Auto) Baso % (Auto) Absolute Neuts (auto) Absolute Lymphs (auto) Total Counted Diff Path Review PT INR APTT Sodium Potassium Chloride Carbon Dioxide Anion Gap BUN Creatinine Estim Creat Clear Calc Est GFR (MDRD) Af Amer Est GFR (MDRD) Non-Af BUN/Creatinine Ratio Glucose Lactic Acid 2.6 H Calcium Total Bilirubin AST ALT Alkaline Phosphatase Total Protein Albumin Globulin Albumin/Globulin Ratio Assessment/Plan All Active Problems (Last Reviewed 10/13/18 @ 15:26 by Kelly Santana) Community acquired pneumonia (Acute) Strep pharyngitis (Acute) Severe sepsis (Acute) Right middle lobe pneumonia (Acute) Sinus tachycardia by electrocardiogram (Acute) Bronchospasm, acute (Acute) Failure of outpatient treatment (Acute) Anticoagulant long-term use (Acute) Bilateral pulmonary embolism (Acute) Chest pain (Resolved) The patient is a 53 year old M with history of DVT and PE on Eliquis came to ER with progressive worsening of shortness of breath, cough with greenish yellow sputum, runny nose, sore throat and URI symptoms, respiratory distress and on no fever for 2 weeks. Patient was seen in ER on 10/25 and was sent home on Z-Brad but he did not feel improvement and has gotten worse in fact. Patient denies history of COPD, smoking or previous PFT. In ED, patient is tachycardic 116/min, tachypneic RR 24/min, leukocytosis but no hypoxia. Chest x-ray shows progressive infiltration in right perihilar region, right upper lobe and middle lobe. EKG shows sinus tachycardia at 128 bpm with right axis deviation suggestive of possible right ventricular hypertrophy. Patient had echo in 06/2015 reported as normal LV size and thickness, EF 65%, normal right and left atrium, no significant valvular abnormality. Patient started on IV fluid normal saline, ceftriaxone, Zithromax and was given bronchodilator in ER and admitted to PCU. 1. Severe sepsis (tachycardic 116/min, tachypneic RR 24/min, leukocytosis and elevated lactic) secondary to right upper lobe/middle lobe community-acquired pneumonia: Blood cultures x2, respiratory panel and sputum culture have been ordered from ER. Continue Rocephin and Zithromax. Bronchodilator, incentive spirometry, chest physiotherapy for supportive management. Lactic acid is elevated. 2. URI symptoms: Rapid strep test ordered. 3 Recurrent history of DVT and PE: Patient had first PE in 2014 and then right lower extremity DVT in 2016. Patient is on lifelong Eliquis, recurrent DVT/PE prophylaxis 2.5 mg twice daily. 4. Hypertension, dyslipidemia: Home medications continued. Laboratory Results 10/27/18 08:52: WBC 15.6 H, RBC 4.47 L, Hgb 13.7, Hct 41.0, MCV 91.7, MCH 30.6, MCHC 33.4, RDW 12.9, RDW Differential 42.3, Plt Count 416, MPV 9.4, Immature Gran % (Auto) 0.400, Neut % (Auto) 80.0 H, Lymph % (Auto) 8.2 L, [place] % (Auto) 10.9 H, Eos % (Auto) 0.4, Baso % (Auto) 0.1, Absolute Neuts (auto) 12.5 H, Absolute Lymphs (auto) 1.27, Total Counted Not Reportable, Diff Path Review December10/27/18 08:52: PT 18.9 H, INR 1.6, APTT 42.2 H 10/27/18 08:52: Sodium 136, Potassium 4.3, Chloride 99, Carbon Dioxide 23.0, Anion Gap 14, BUN 16, Creatinine 1.26, Estim Creat Clear Calc 70.81, Est GFR (MDRD) Af Amer 77, Est GFR (MDRD) Non-Af 64, BUN/Creatinine Ratio 12.7, Glucose 113 H, Calcium 8.6, Total Bilirubin 2.50 H, AST 22, ALT 33, Alkaline Phosphatase 137 H, Total Protein 7.8, Albumin 2.6 L, Globulin 5.2 H, Albumin/Globulin Ratio 0.5 L 10/27/18 08:52: Lactic Acid 2.6 H Clinical Impression(s) from Imaging Studies Chest X-Ray 10/27/18 08:34 IMPRESSION: Progressive infiltration in the right perihilar region as well as in the right upper lobe and right lower lobe. Radiographic follow-up is recommended. Mild increased markings at the left lung base suggestive of scarring. Active Medications Acetaminophen (Tylenol) 650 mg PO Q4H PRN PRN PRN Reason: Mild-Mod Pain/Headache/ FEVER Al Hydroxide/Mg Hydroxide (Mylanta Ii) 30 ml PO Q6H PRN PRN PRN Reason: Gastric Burning Albuterol Sulfate (Ventolin Aerosols) 2.5 mg INHALATION Q2H PRN PRN PRN Reason: SOB &/OR WHEEZING Albuterol/Ipratropium (Duoneb) 3 ml INHALATION Q4HWA [facility] Apixaban (Eliquis) 2.5 mg PO BID JEFF Budesonide (Pulmicort Aerosol) 0.5 mg INHALATION Q12H.RT JEFF Docusate Sodium (Colace) 200 mg PO BID PRN PRN PRN Reason: Constipation Famotidine (Pepcid) 20 mg PO BID [facility] Guaifenesin (Mucinex) 1,200 mg PO BID [facility] Last Admin: 10/27/18 11:12 Dose: 1,200 mg Sodium Chloride () 1,000 mls @ 150 mls/hr IV .Q6H40M [facility] Last Admin: 10/27/18 11:12 Dose: 150 mls/hr Azithromycin 500 mg/ Dextrose 255 mls @ 250 mls/hr IV Q24 [facility] Stop: 10/29/18 11:02 Ceftriaxone Sodium (Rocephin) 1 gm in 50 mls @ 100 mls/hr IV Q24 [facility] Metoclopramide HCl (Reglan) 5 mg IV Q6H PRN PRN Reason: NAUSEA/VOMITING Nitroglycerin (Nitrostat) 0.4 mg SUBLINGUAL Q5M PRN PRN Reason: Chest Pain Oxycodone HCl (Oxyir) 5 mg PO Q4H PRN PRN PRN Reason: Moderate Pain (pain scale 4-5) Tramadol HCl (Ultram) 50 mg PO BID JEFF Zolpidem Tartrate (Ambien (Generic)) 5 mg PO QHS PRN PRN PRN Reason: SLEEP [] Code Visit Inpatient E&M: 33697 Init Hosp L3
[2018-10-27 13:03] LABS: Reflex Lactate? Y
[2018-10-27 13:52] LABS: Lactic Acid 2.9 mmol/L (0.4-2.0)
[2018-10-27 14:29] LABS: Color, Urine Amber (Yellow); Glucose, Dipstick Normal (Normal); Leukocyte Esterase-Dipstick 25 /ul (Negative); Nitrite-Dipstick Negative (Negative); Occult Blood-Urine 150 /ul (Negative); Protein-Dipstick 30 mg/dl (Negative); Specific Gravity, Urine 1.015 (1.002-1.030); Urine Clarity Sl. Cloudy (Clear); Urine Urobilinogen 8 mg/dl (Normal)
[2018-10-27 14:33] LABS: Urine Bilirubin Dipstick 3 mg/dL (Negative)
[2018-10-27 14:39] LABS: Ketone-Dipstick 150 mg/dl (Negative)
[2018-10-27 14:45] LABS: Bacteria RARE /hpf (None Seen); Mucous, Urine RARE /hpf (<or=2+); Red Blood Cells-Urine 0-5 SEEN /hpf (0-5); Squamous Epithelial Cells - UA 0-5 SEEN /hpf (0-5); White Blood Cells 0-5 SEEN /hpf (0-5)
[2018-10-27] MEDS: Budesonide Respules 0.5 MG/2 ML AMPUL.NEB. INHALATION (19:25)
[2018-10-27] MEDS: Famotidine 20 MG Tablet PO (22:56)
[2018-10-27] MEDS: APIXABAN 2.5 MG TABLET PO (22:56)
[2018-10-27] MEDS: traMADol 50 MG Tablet PO (22:56)
[2018-10-28] VITALS (14 sets, daily range): BP systolic 117–135; BP diastolic 82–89; PULSE 83–127; RESP 16–20; TEMP 36.2–37.4; O2SAT 95–97
[2018-10-28] MEDS: 0.9% Normal Saline 1,000 ML 150 ML IV (04:59)
[2018-10-28] MEDS: Ipratropium/Albuterol Sulfate 3 ML AMPUL.NEB INHALATION ×4 (07:01→18:47)
[2018-10-28] MEDS: APIXABAN 2.5 MG TABLET PO ×2 (09:45→21:45)
[2018-10-28] MEDS: guaiFENesin 1,200 MG Tablet 1200 MG PO ×2 (09:45→21:45)
[2018-10-28] MEDS: traMADol 50 MG Tablet PO ×2 (09:45→21:45)
[2018-10-28] MEDS: Ceftriaxone 1 GM/50 ML BAG IV (09:45)
[2018-10-28] MEDS: Famotidine 20 MG Tablet PO ×2 (09:45→21:45)
--- NOTE | 2018-10-28 13:07 | PCM.PROGNOTE ---
<Annel Gutierrez - Last Filed: 10/28/18 13:18> Patient Problems: Active and Suspected Problems (Last Reviewed 10/13/18 @ 15:26 by Kelly Santana) Strep pharyngitis (Acute) Severe sepsis (Acute) Right middle lobe pneumonia (Acute) Sinus tachycardia by electrocardiogram (Acute) Bronchospasm, acute (Acute) Failure of outpatient treatment (Acute) Anticoagulant long-term use (Acute) Subjective: Patient seen and examined. Complains of fever, chills overnight and continued shortness of breath. Intermittent productive cough. - Physical Exam General: Alert, Oriented x3, Cooperative HEENT: Atraumatic, PERRLA, EOMI, Normocephalic Neck: Supple, No JVD, Negative Carotid Bruits Lungs: Diminished, Rales, Wheezes Cardiovascular: Regular Rhythm, Normal S1, Normal S2, No murmurs, Tachycardic Abdomen: Bowel Sounds Present, Soft, Non Tender, Non-Distended Extremities: No clubbing, No cyanosis, No edema, Capillary Refill Less than 3 Seconds Skin: No rashes, No breakdown Musculoskeletal: No Tenderness to Palpation of Joints or Extremities Neurological: Cranial nerves II-XII grossly intact, Neuro grossly intact Psych/Mental Status: Normal Affect, Appropriate Vital Signs Temp Pulse Resp BP Pulse Ox 98 F 114 H 16 135/82 H 95 10/28/18 08:37 10/28/18 11:39 10/28/18 10:42 10/28/18 08:37 10/28/18 10:42 Oxygen Delivery Method Room Air Weight: 220 lb 14.451 oz Body Mass Index (BMI) 31.6 Intake and Output for Last 24 Hours 10/26/18 10/27/18 10/28/18 23:59 23:59 23:59 Intake Total 480 / 480 2764 / 2764 Output Total 825 / 825 Balance 480 / 480 1939 / 1939 Microbiology Past 72 Hours 10/27/18 15:09 Group A Streptococcus Rapid Screen - Preliminary Mucosa - Nasopharyngeal 10/27/18 10:47 Gram Stain - Final Sputum, Expectorated/Coughed Respiratory Culture - Preliminary Appears to be normal respiratory david. Further studies to follow. 10/27/18 14:15 Legionella Antigen - Final Urine, Random Streptococcus pneumoniae Antigen (M - Final Laboratory Tests Past 24 Hrs 10/27/18 10/27/18 10/27/18 13:10 14:15 14:15 Lactic Acid 2.9 H Urine Color Natacha Cancelled Urine Clarity Sl. Cloudy Cancelled Urine pH 5.0 Cancelled Ur Specific [place] 1.015 Cancelled U Specif Grav (Refrac) Cancelled Urine Protein 30 H Cancelled Urine Glucose (UA) Normal Cancelled Urine Ketones 150 H Cancelled Urine Occult Blood 150 H Cancelled Urine Nitrite Negative Cancelled Urine Bilirubin 3 H Cancelled Urine Urobilinogen 8 H Cancelled Ur Leukocyte Esterase 25 H Cancelled Urine RBC 0-5 SEEN Urine WBC 0-5 SEEN Ur Squamous Epith Cells 0-5 SEEN Urine Bacteria RARE Urine Mucus RARE Medical Necessity - Tobacco Use Smoking Status: Never smoker Assessment/Plan All Active Problems (Last Reviewed 10/13/18 @ 15:26 by Kelly Santana) Community acquired pneumonia (Acute) Strep pharyngitis (Acute) Severe sepsis (Acute) Right middle lobe pneumonia (Acute) Sinus tachycardia by electrocardiogram (Acute) Bronchospasm, acute (Acute) Failure of outpatient treatment (Acute) Anticoagulant long-term use (Acute) Bilateral pulmonary embolism (Acute) Chest pain (Resolved) 1. Severe sepsis secondary to multilobar community-acquired pneumonia- CXR on admission showed progressive infiltration in the right perihilar region as well as the right upper lobe and right lower lobe. Radiographic follow-up is recommended. Mild increased markings at the left lung base suggestive of scarring. Continue albuterol and DuoNeb aerosols. IV azithromycin and IV Rocephin. Mucinex twice daily. Respiratory panel pending. Urine negative for strep and Legionella. Sputum culture preliminary shows normal respiratory david. Blood cultures pending. 2. 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 3. Hypertension-not on regimen, stable. 4. Hyperlipidemia-not on regimen. Recommend repeat lipid panel by primary care physician. DVT prophylaxis- Eliquis This patient was seen by MILLIE Schafer under the supervision of Dr. Blandon. <Chu Blandon - Last Filed: 10/28/18 17:14> Subjective: Patient had fever and chills overnight. Patient continues to have cough with greenish yellow sputum. Patient is short of breath. - Physical Exam General: Alert, Oriented x3, Cooperative HEENT: Atraumatic, PERRLA, EOMI, Normocephalic Neck: Supple, No JVD, Negative Carotid Bruits Lungs: Diminished, Rales, Short of Breath, Wheezes Cardiovascular: No murmurs, Bradycardic, Tachycardic Abdomen: Bowel Sounds Present, Soft, Non Tender, Non-Distended Extremities: No edema, Capillary Refill Less than 3 Seconds, No Calf Tenderness Skin: No rashes, No breakdown Musculoskeletal: No Tenderness to Palpation of Joints or Extremities, Arthritic Changes Neurological: Cranial nerves II-XII grossly intact Psych/Mental Status: Normal Affect, Appropriate Vital Signs Temp Pulse Resp BP Pulse Ox 98.2 F 108 H 16 117/82 H 95 10/28/18 14:21 10/28/18 15:03 10/28/18 14:31 10/28/18 14:21 10/28/18 14:21 Oxygen Delivery Method Room Air Weight: 220 lb 14.451 oz Body Mass Index (BMI) 31.6 Intake and Output for Last 24 Hours 10/26/18 10/27/18 10/28/18 23:59 23:59 23:59 Intake Total 480 / 480 4100 / 4100 Output Total 1825 / 1825 Balance 480 / 480 2275 / 2275 Microbiology Past 72 Hours 10/28/18 Unknown Respiratory Panel (PCR) - Final Mucosa - Nasopharyngeal 10/27/18 15:09 Group A Streptococcus Rapid Screen - Preliminary Mucosa - Nasopharyngeal 10/27/18 10:47 Gram Stain - Final Sputum, Expectorated/Coughed Respiratory Culture - Preliminary Appears to be normal respiratory david. Further studies to follow. 10/27/18 14:15 Legionella Antigen - Final Urine, Random Streptococcus pneumoniae Antigen (M - Final Laboratory Tests Past 24 Hrs 10/27/18 10/27/18 10/28/18 08:52 14:15 12:55 WBC 11.9 H RBC 3.84 L Hgb 11.7 L Hct 34.6 L MCV 90.1 MCH 30.5 MCHC 33.8 RDW 13.3 RDW Differential 44.0 H Plt Count 330 MPV 9.3 Immature Gran % (Auto) 0.300 Neut % (Auto) 77.5 H Lymph % (Auto) 11.9 L [place] % (Auto) 9.4 Eos % (Auto) 0.8 Baso % (Auto) 0.1 Absolute Neuts (auto) 9.2 H Absolute Lymphs (auto) 1.41 Total Counted Not Reportable Diff Path Review Reviewed Sodium Potassium Chloride Carbon Dioxide Anion Gap BUN Creatinine Estim Creat Clear Calc Est GFR (MDRD) Af Amer Est GFR (MDRD) Non-Af BUN/Creatinine Ratio Glucose Calcium Urine Color Cancelled Urine Clarity Cancelled Urine pH Cancelled Ur Specific [place] Cancelled U Specif Grav (Refrac) Cancelled Urine Protein Cancelled Urine Glucose (UA) Cancelled Urine Ketones Cancelled Urine Occult Blood Cancelled Urine Nitrite Cancelled Urine Bilirubin Cancelled Urine Urobilinogen Cancelled Ur Leukocyte Esterase Cancelled 10/28/18 12:55 WBC RBC Hgb Hct MCV MCH MCHC RDW RDW Differential Plt Count MPV Immature Gran % (Auto) Neut % (Auto) Lymph % (Auto) [place] % (Auto) Eos % (Auto) Baso % (Auto) Absolute Neuts (auto) Absolute Lymphs (auto) Total Counted Diff Path Review Sodium 138 Potassium 3.3 L Chloride 108 H Carbon Dioxide 24.0 Anion Gap 6 BUN 11 Creatinine 0.92 Estim Creat Clear Calc 96.98 Est GFR (MDRD) Af Amer 110 Est GFR (MDRD) Non-Af 91 BUN/Creatinine Ratio 11.9 Glucose 161 H Calcium 8.0 L Urine Color Urine Clarity Urine pH Ur Specific [place] U Specif Grav (Refrac) Urine Protein Urine Glucose (UA) Urine Ketones Urine Occult Blood Urine Nitrite Urine Bilirubin Urine Urobilinogen Ur Leukocyte Esterase Assessment/Plan This patient was seen in conjunction with Annel BERUMEN. I have independently interviewed and examined the patient and reviewed pertinent history, examination findings, laboratory and plan of management. I have reviewed the note and agree with the documented findings with the few additional points. In brief, patient is admitted for severe sepsis secondary to multilobar community-acquired pneumonia. Patient is on IV Rocephin and Zithromax, Mucinex, DuoNeb and albuterol nebulization. Incentive spirometry. Urinary antigens are negative. Mild hypokalemia: Potassium replaced. He has a history of recurrent DVT/PE on lifelong Eliquis 2.5 mg, prophylactic DVT dose I have discussed my assessment with Annel BERUMEN and orders have been reviewed. Code Visit Inpatient E&M: 12466 Subs Hosp L2
[2018-10-28 13:14] LABS: Absolute Lymphocyte Count 1.41 X10^3/ul (0.83-4.51); Absolute Neutrophil Count 9.2 X10^3/uL (2.0-7.7); Basophil# 0.01 X10^3/uL; Basophil% 0.1 % (0-1); Eosinophils% 0.8 % (0-5); Hematocrit 34.6 % (40-54); Hemoglobin 11.7 g/dl (13.0-16.5); Lymphocyte # 1.41 X10^3/ul (4.0); Lymphocyte % 11.9 % (19-41); Mean Corp Hgb Conc 33.8 g/gl (32-36); Mean Corpuscular Hgb 30.5 pg (27.0-32.0); Mean Corpuscular Volume 90.1 fL (80-94); Mean Platelet Vol. 9.3 fl (6.2-12.0); Monocyte# 1.12 X10^3/uL; Monocyte% 9.4 % (0-10); Neutrophil # 9.19 X10^3/uL (2.7-7.7); Neutrophil % 77.5 % (47-70); POSITIVE COUNT NO; POSITIVE DIFFERENTIAL NO; POSITIVE MORPHOLOGY NO; Platelet Count 330 K/mm3 (150-450); RBC Distribution Width CV 13.3 % (11.6-14.6); Red Blood Count 3.84 M/mm3 (4.6-6.2); White Blood Count 11.9 K/mm3 (4.4-11.0)
--- NOTE | 2018-10-28 13:17 | PN_ITS ---
<Annel Gutierrez - Last Filed: 10/28/18 13:18> Patient Problems: Active and Suspected Problems (Last Reviewed 10/13/18 @ 15:26 by Kelly Santana) Strep pharyngitis (Acute) Severe sepsis (Acute) Right middle lobe pneumonia (Acute) Sinus tachycardia by electrocardiogram (Acute) Bronchospasm, acute (Acute) Failure of outpatient treatment (Acute) Anticoagulant long-term use (Acute) Subjective: Patient seen and examined. Complains of fever, chills overnight and continued shortness of breath. Intermittent productive cough. - Physical Exam General: Alert, Oriented x3, Cooperative HEENT: Atraumatic, PERRLA, EOMI, Normocephalic Neck: Supple, No JVD, Negative Carotid Bruits Lungs: Diminished, Rales, Wheezes Cardiovascular: Regular Rhythm, Normal S1, Normal S2, No murmurs, Tachycardic Abdomen: Bowel Sounds Present, Soft, Non Tender, Non-Distended Extremities: No clubbing, No cyanosis, No edema, Capillary Refill Less than 3 S econds Skin: No rashes, No breakdown Musculoskeletal: No Tenderness to Palpation of Joints or Extremities Neurological: Cranial nerves II-XII grossly intact, Neuro grossly intact Psych/Mental Status: Normal Affect, Appropriate Vital Signs Temp Pulse Resp BP Pulse Ox 98 F 114 H 16 135/82 H 95 10/28/18 08:37 10/28/18 11:39 10/28/18 10:42 10/28/18 08:37 10/28/18 10:42 Oxygen Delivery Method Room Air Weight: 220 lb 14.451 oz Body Mass Index (BMI) 31.6 Intake and Output for Last 24 Hours 10/26/18 10/27/18 10/28/18 23:59 23:59 23:59 Intake Total 480 / 480 2764 / 2764 Output Total 825 / 825 Balance 480 / 480 1939 / 1939 Microbiology Past 72 Hours 10/27/18 15:09 Group A Streptococcus Rapid Screen - Preliminary Mucosa - Nasopharyngeal 10/27/18 10:47 Gram Stain - Final Sputum, Expectorated/Coughed Respiratory Culture - Preliminary Appears to be normal respiratory david. Further studies to follow. 10/27/18 14:15 Legionella Antigen - Final Urine, Random Streptococcus pneumoniae Antigen (M - Final Laboratory Tests Past 24 Hrs 10/27/18 10/27/1819 13:10 14:15 14:15 Lactic Acid 2.9 H Urine Color Natacha Cancelled Urine Clarity Sl. Cloudy Cancelled Urine pH 5.0 Cancelled Ur Specific [place] 1.015 Cancelled U Specif Grav (Refrac) Cancelled Urine Protein 30 H Cancelled Urine Glucose (UA) Normal Cancelled Urine Ketones 150 H Cancelled Urine Occult Blood 150 H Cancelled Urine Nitrite Negative Cancelled Urine Bilirubin 3 H Cancelled Urine Urobilinogen 8 H Cancelled Ur Leukocyte Esterase 25 H Cancelled Urine RBC 0-5 SEEN Urine WBC 0-5 SEEN Ur Squamous Epith Cells 0-5 SEEN Urine Bacteria RARE Urine Mucus RARE Medical Necessity - Tobacco Use Smoking Status: Never smoker Assessment/Plan All Active Problems (Last Reviewed 10/13/18 @ 15:26 by Kelly Santana) Community acquired pneumonia (Acute) Strep pharyngitis (Acute) Severe sepsis (Acute) Right middle lobe pneumonia (Acute) Sinus tachycardia by electrocardiogram (Acute) Bronchospasm, acute (Acute) Failure of outpatient treatment (Acute) Anticoagulant long-term use (Acute) Bilateral pulmonary embolism (Acute) Chest pain (Resolved) 1. Severe sepsis secondary to multilobar community-acquired pneumonia- CXR on admission showed progressive infiltration in the right perihilar region as well as the right upper lobe and right lower lobe. Radiographic follow-up is recommended. Mild increased markings at the left lung base suggestive of scarring. Continue albuterol and DuoNeb aerosols. IV azithromycin and IV Rocephin. Mucinex twice daily. Respiratory panel pending. Urine negative for strep and Legionella. Sputum culture preliminary shows normal respiratory david. Blood cultures pending. 2. 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 3. Hypertension-not on regimen, stable. 4. Hyperlipidemia-not on regimen. Recommend repeat lipid panel by primary care physician. DVT prophylaxis- Eliquis This patient was seen by MILLIE Schafer under the supervision of Dr. Blandon. <Chu Blandon - Last Filed: 10/28/18 17:14> Subjective: Patient had fever and chills overnight. Patient continues to have cough with gr eenish yellow sputum. Patient is short of breath. - Physical Exam General: Alert, Oriented x3, Cooperative HEENT: Atraumatic, PERRLA, EOMI, Normocephalic Neck: Supple, No JVD, Negative Carotid Bruits Lungs: Diminished, Rales, Short of Breath, Wheezes Cardiovascular: No murmurs, Bradycardic, Tachycardic Abdomen: Bowel Sounds Present, Soft, Non Tender, Non-Distended Extremities: No edema, Capillary Refill Less than 3 Seconds, No Calf Tenderness Skin: No rashes, No breakdown Musculoskeletal: No Tenderness to Palpation of Joints or Extremities, Arthritic Changes Neurological: Cranial nerves II-XII grossly intact Psych/Mental Status: Normal Affect, Appropriate Vital Signs Temp Pulse Resp BP Pulse Ox 98.2 F 108 H 16 117/82 H 95 10/28/18 14:21 10/28/18 15:03 10/28/18 14:31 10/28/18 14:21 10/28/18 14:21 Oxygen Delivery Method Room Air Weight: 220 lb 14.451 oz Body Mass Index (BMI) 31.6 Intake and Output for Last 24 Hours 10/26/18 10/27/18 10/28/18 23:59 23:59 23:59 Intake Total 480 / 480 4100 / 4100 Output Total 1825 / 1825 Balance 480 / 480 2275 / 2275 Microbiology Past 72 Hours 10/28/18 Unknown Respiratory Panel (PCR) - Final Mucosa - Nasopharyngeal 10/27/18 15:09 Group A Streptococcus Rapid Screen - Preliminary Mucosa - Nasopharyngeal 10/27/18 10:47 Gram Stain - Final Sputum, Expectorated/Coughed Respiratory Culture - Preliminary Appears to be normal respiratory david. Further studies to follow. 10/27/18 14:15 Legionella Antigen - Final Urine, Random Streptococcus pneumoniae Antigen (M - Final Laboratory Tests Past 24 Hrs 10/27/18 10/27/18 10/28/18 08:52 14:15 12:55 WBC 11.9 H RBC 3.84 L Hgb 11.7 L Hct 34.6 L MCV 90.1 MCH 30.5 MCHC 33.8 RDW 13.3 RDW Differential 44.0 H Plt Count 330 MPV 9.3 Immature Gran % (Auto) 0.300 Neut % (Auto) 77.5 H Lymph % (Auto) 11.9 L [place] % (Auto) 9.4 Eos % (Auto) 0.8 Baso % (Auto) 0.1 Absolute Neuts (auto) 9.2 H Absolute Lymphs (auto) 1.41 Total Counted Not Reportable Diff Path Review Reviewed Sodium Potassium Chloride Carbon Dioxide Anion Gap BUN Creatinine Estim Creat Clear Calc Est GFR (MDRD) Af Amer Est GFR (MDRD) Non-Af BUN/Creatinine Ratio Glucose Calcium Urine Color Cancelled Urine Clarity Cancelled Urine pH Cancelled Ur Specific [place] Cancelled U Specif Grav (Refrac) Cancelled Urine Protein Cancelled Urine Glucose (UA) Cancelled Urine Ketones Cancelled Urine Occult Blood Cancelled Urine Nitrite Cancelled Urine Bilirubin Cancelled Urine Urobilinogen Cancelled Ur Leukocyte Esterase Cancelled 10/28/18 12:55 WBC RBC Hgb Hct MCV MCH MCHC RDW RDW Differential Plt Count MPV Immature Gran % (Auto) Neut % (Auto) Lymph % (Auto) [place] % (Auto) Eos % (Auto) Baso % (Auto) Absolute Neuts (auto) Absolute Lymphs (auto) Total Counted Diff Path Review Sodium 138 Potassium 3.3 L Chloride 108 H Carbon Dioxide 24.0 Anion Gap 6 BUN 11 Creatinine 0.92 Estim Creat Clear Calc 96.98 Est GFR (MDRD) Af Amer 110 Est GFR (MDRD) Non-Af 91 BUN/Creatinine Ratio 11.9 Glucose 161 H Calcium 8.0 L Urine Color Urine Clarity Urine pH Ur Specific [place] U Specif Grav (Refrac) Urine Protein Urine Glucose (UA) Urine Ketones Urine Occult Blood Urine Nitrite Urine Bilirubin Urine Urobilinogen Ur Leukocyte Esterase Assessment/Plan This patient was seen in conjunction with REGISTERED SAFETY ENGINEERAnnel. I have independently interviewed and examined the patient and reviewed pertinent history, examination findings, laboratory and plan of management. I have reviewed the note and agree with the documented findings with the few additional points. In brief, patient is admitted for severe sepsis secondary to multilobar com munity-acquired pneumonia. Patient is on IV Rocephin and Zithromax, Mucinex, DuoNeb and albuterol nebulization. Incentive spirometry. Urinary antigens are negative. Mild hypokalemia: Potassium replaced. He has a history of recurrent DVT/PE on lifelong Eliquis 2.5 mg, prophylactic DVT dose I have discussed my assessment with REGISTERED SAFETY ENGINEERAnnel and orders have been reviewed. Code Visit Inpatient E&M: 13842 Subs Hosp L2
[2018-10-28 13:45] LABS: Anion Gap 6 (5-15); BUN 11 mg/dL (7-18); BUN/Creat Ratio 11.9 RATIO (10-20); Chloride 108 mmol/L (98-107); Creatinine, Serum 0.92 mg/dL (0.70-1.30); EST Glomerular Filtration Rate 91 mL/min (>60); Est Glom Filt Rate - Afr Amer 110 mL/min (>60); Estimated Creatinine Clearance 96.98 ml/min; Glucose 161 mg/dL (74-106); Potassium 3.3 mmol/L (3.5-5.1); Sodium Level 138 mmol/L (136-145)
[2018-10-28 13:59] LABS: Pathologist Review Reviewed
--- NOTE | 2018-10-28 14:24 | CASEMGMT ---
SHELBIE BACK assessment: Face to Face with patient for initial transition planning/care coordination assessment. SHELBIE BACK introduced self and role at [facility], pt voices understanding and consents to assessment at this time. Pt is sitting up in bed in no distress on room air at this time. Pt is A/Ox4 at this time and answers all questions appropriately at this time. Pt's sig other, Honey Pillai, is at bedside during assessment. Care providers, pharmacy, and demographics verified at this time. PCP: Martha Specialists: Carline, hematology Preferred Pharmacy: [facility] Insurance: [facility] A/B, [facility] Prescription Benefit: NOHELIA Living Will/HPOA: Pt states does not have LW/HPOA and declines info at this time. LNOK: linh Pollock other Living Arrangements: Pt states that [facility] sig [facility] and he plans to go back at discharge. Transportation: Pt states drives self and states no transportation concerns at this time. DME/HHC: Pt states has cpap that was set up through [facility] and pt/sig other aware that he needs to f/u with [facility] to either continue with them or transfer cpap to another local DME company, voices understanding. Pt states no need for any further DME at this time. Pt states no hx of HHC or SNF in the past. Pt states no concerns with going home/[place] at discharge. Pt states is on disability. Pt states does not smoke but does drink ETOH occasionally. Pt states no further concerns/needs at this time. CM to follow for any further discharge planning/needs. Advised pt to ask for CM if any further questions/concerns arise, voices understanding. Pt Goal: Home Plan[place] SHELBIE BACK
[2018-10-28] MEDS: Budesonide Respules 0.5 MG/2 ML AMPUL.NEB. INHALATION (18:47)
[2018-10-28] MEDS: guaiFENesin 10 ML UDC (200MG/10ML) PO (21:45)
[2018-10-28] MEDS: Acetaminophen 325 MG Tablet 650 MG PO (21:45)
[2018-10-29] VITALS (9 sets, daily range): BP systolic 130–143; BP diastolic 64–97; PULSE 79–109; RESP 16–20; TEMP 36.6–36.9; O2SAT 95–97
[2018-10-29] MEDS: guaiFENesin 10 ML UDC (200MG/10ML) PO (02:27)
[2018-10-29 05:20] LABS: Hematocrit 37.8 % (40-54); Hemoglobin 12.3 g/dl (13.0-16.5); Mean Corp Hgb Conc 32.5 g/gl (32-36); Mean Corpuscular Hgb 30.5 pg (27.0-32.0); Mean Corpuscular Volume 93.8 fL (80-94); Mean Platelet Vol. 9.5 fl (6.2-12.0); Platelet Count 354 K/mm3 (150-450); RBC Distribution Width CV 13.3 % (11.6-14.6); RBC Distribution Width SD 44.1 fl (35.1-43.9); Red Blood Count 4.03 M/mm3 (4.6-6.2); White Blood Count 8.6 K/mm3 (4.4-11.0)
[2018-10-29 05:28] LABS: Anion Gap 5 (5-15); BUN 9 mg/dL (7-18); BUN/Creat Ratio 10.4 RATIO (10-20); Calcium,Total 8.3 mg/dL (8.5-10.1); Chloride 108 mmol/L (98-107); Creatinine, Serum 0.87 mg/dL (0.70-1.30); EST Glomerular Filtration Rate 98 mL/min (>60); Est Glom Filt Rate - Afr Amer 119 mL/min (>60); Estimated Creatinine Clearance 102.55 ml/min; Glucose 100 mg/dL (74-106); Potassium 4.3 mmol/L (3.5-5.1); Sodium Level 142 mmol/L (136-145)
[2018-10-29 05:34] LABS: Scan Indicated on CBC? Y/N NO
[2018-10-29] MEDS: Ipratropium/Albuterol Sulfate 3 ML AMPUL.NEB INHALATION ×2 (07:27→10:55)
[2018-10-29] MEDS: Budesonide Respules 0.5 MG/2 ML AMPUL.NEB. INHALATION (07:27)
[2018-10-29] MEDS: Famotidine 20 MG Tablet PO (08:34)
[2018-10-29] MEDS: guaiFENesin 1,200 MG Tablet 1200 MG PO (08:34)
[2018-10-29] MEDS: traMADol 50 MG Tablet PO (08:34)
[2018-10-29] MEDS: APIXABAN 2.5 MG TABLET PO (08:35)
[2018-10-29] MEDS: Ceftriaxone 1 GM/50 ML BAG IV (08:35)
--- NOTE | 2018-10-29 10:46 | PCM.DC ---
- Discharge Diagnoses Current Active Problems: Current Active and Chronic Problems (Last Reviewed 10/13/18 @ 15:26 by Kelly Santana) Severe sepsis (Acute) Right middle lobe pneumonia (Acute) Bronchospasm, acute (Acute) Failure of outpatient treatment (Acute) Anticoagulant long-term use (Acute) You will use the following diet at home:: No restrictions Discharge Activity: Return to Normal Activity Call your doctor if you observe: Fever of 101 or Higher, Shortness of breath, Dizziness, Chest pain Allergies/Adverse Reactions: Allergies venom-honey bee [bee venom (honey bee)] Allergy (Verified 10/25/18 09:16) Anaphylaxis Medications to take at Discharge Albuterol IH (ProAir) [Proair Hfa] 2 puff INHALATION Q4H PRN PRN 11/29/15 Budesonide/Formoterol 80-4.5 [Symbicort 80-4.5 Mcg Inhaler] 2 puff INHALATION BID 11/29/15 Apixaban [Eliquis] 2.5 mg PO BID #60 tab 04/14/18 Amox/Clavulanate Tablet [Augmentin Tablet] 875 mg PO Q12H #14 tablet 10/29/18 The following prescriptions were given: Amox/Clavulanate Tablet [Augmentin Tablet] 875 mg PO Q12H #14 tablet Primary Care Physician: Troy Thomas DO [Primary Care Provider] - Please follow up with your Primary Care Physician in: 1 Week Test Results: Test results from this visit will be discussed in further detail at your follow-up appointment, if applicable. Proposed Discharge Date: 10/29/18
--- NOTE | 2018-10-29 10:49 | DCINST_ITS ---
- Discharge Diagnoses Current Active Problems: Current Active and Chronic Problems (Last Reviewed 10/13/18 @ 15:26 by Kelly Santana) Severe sepsis (Acute) Right middle lobe pneumonia (Acute) Bronchospasm, acute (Acute) Failure of outpatient treatment (Acute) Anticoagulant long-term use (Acute) You will use the following diet at home:: No restrictions Discharge Activity: Return to Normal Activity Call your doctor if you observe: Fever of 101 or Higher, Shortness of breath, Dizziness, Chest pain Allergies/Adverse Reactions: Allergies venom-honey bee [bee venom (honey bee)] Allergy (Verified 10/25/18 09:16) Anaphylaxis Medications to take at Discharge Albuterol IH (ProAir) [Proair Hfa] 2 puff INHALATION Q4H PRN PRN 11/29/15 Budesonide/Formoterol 80-4.5 [Symbicort 80-4.5 Mcg Inhaler] 2 puff INHALATION BID 11/29/15 Apixaban [Eliquis] 2.5 mg PO BID #60 tab 04/14/18 Amox/Clavulanate Tablet [Augmentin Tablet] 875 mg PO Q12H #14 tablet 10/29/18 The following prescriptions were given: Amox/Clavulanate Tablet [Augmentin Tablet] 875 mg PO Q12H #14 tablet Primary Care Physician: Troy Thomas DO [Primary Care Provider] - Please follow up with your Primary Care Physician in: 1 Week Test Results: Test results from this visit will be discussed in further detail at your follow- up appointment, if applicable. Proposed Discharge Date: 10/29/18
--- NOTE | 2018-10-29 10:56 | DS.PCM_ITS ---
<Annel Gutierrez - Last Filed: 10/29/18 10:56> Discharge Date and Diagnosis Date of Admission: 10/27/18 Date of Discharge: 10/29/18 - Primary Discharge Diagnosis Active and Suspected Problems (Last Reviewed 10/13/18 @ 15:26 by Kelly Santana) 1. Severe sepsis secondary to multilobar community-acquired pneumonia 2. History of recurrent DVT/PE 3. Hypertension 4. Hyperlipidemia - Secondary Discharge Diagnosis Chronic Problems (Last Reviewed 10/13/18 @ 15:26 by Kelly Santana) Non compliance with medical treatment (Chronic) DVT (deep venous thrombosis) (Chronic) Hyperlipidemia (Chronic) Hypertension (Chronic) Hospital Course and Treatment Imaging Results: Diagnostic Data Chest X-Ray 10/27/18 08:34 IMPRESSION: Progressive infiltration in the right perihilar region as well as in the right upper lobe and right lower lobe. Radiographic follow-up is recommended. Mild increased markings at the left lung base suggestive of scarring. Electronically Signed: Rl Zoraida, at 10:03 EDT , Service support , Operations: None Procedures: None Summary of Care Provided: The patient is a 53 year old M admitted 10/27/2018 due to shortness of breath and fever. 1. Severe sepsis secondary to multilobar community-acquired pneumonia- CXR on admission showed progressive infiltration in the right perihilar region as well as the right upper lobe and right lower lobe. Mild increased markings at the lef t lung base suggestive of scarring. IV azithromycin and IV Rocephin during admission, transition to Augmentin 875 mg p.o. twice daily times 7 days at discharge. Respiratory panel negative. Urine negative for strep and Legionella. Sputum culture preliminary shows normal respiratory david. Blood culture shows no growth thus far. Urine culture with mixed gram-positive organisms, low colony count. UTI ruled out. Patient can continue home inhaler regimen. Recommend outpatient pulmonary function testing, patient reports questionable history of asthma? Follow-up with primary care physician in 1 week. 2. 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 3. Hypertension-not on regimen, stable. 4. Hyperlipidemia-not on regimen. Recommend repeat lipid panel by primary care physician. General: Alert, Oriented x3, Cooperative HEENT: Atraumatic, PERRLA, EOMI, Normocephalic Neck: Supple, No JVD, Negative Carotid Bruits Lungs: Diminished, clear to auscultation Cardiovascular: Regular Rhythm, Normal S1, Normal S2, No murmurs, regular rate Abdomen: Bowel Sounds Present, Soft, Non Tender, Non-Distended Extremities: No clubbing, No cyanosis, No edema, Capillary Refill Less than 3 Seconds Skin: No rashes, No breakdown Musculoskeletal: No Tenderness to Palpation of Joints or Extremities Neurological: Cranial nerves II-XII grossly intact, Neuro grossly intact Psych/Mental Status: Normal Affect, Appropriate Patient seen and examined prior to discharge. Physical assessment as noted above. Patient is stable for discharge with follow up recommendations as noted above. This patient was seen by MILLIE Schafer under the supervision of Dr. Blandon. - Physical Exam Vital Signs Temp Pulse Resp BP Pulse Ox 97.9 F 92 16 143/97 H 97 10/29/18 06:10 10/29/18 07:27 10/29/18 07:27 10/29/18 06:10 10/29/18 10:33 Oxygen Flow Rate (L/min) 2 Oxygen Delivery Method Nasal Cannula Weight: 220 lb 14.451 oz Body Mass Index (BMI) 31.6 Intake and Output for Last 24 Hours 10/27/18 10/28/18 10/29/18 23:59 23:59 23:59 Intake Total 480 / 480 4100 / 4100 480 / 480 Output Total 1825 / 1825 875 / 875 Balance 480 / 480 2275 / 2275 -395 / -395 Microbiology Past 72 Hours 10/27/18 15:09 Group A Streptococcus Rapid Screen - Final Mucosa - Nasopharyngeal 10/27/18 10:47 Gram Stain - Final Sputum, Expectorated/Coughed Respiratory Culture - Final 10/27/18 14:15 Urine Culture - Final Urine, Clean Catch Mixed Gram Positive Organisms 10/28/18 Unknown Respiratory Panel (PCR) - Final Mucosa - Nasopharyngeal 10/27/18 14:15 Legionella Antigen - Final Urine, Random Streptococcus pneumoniae Antigen (M - Final Laboratory Tests Past 24 Hrs 10/27/18 10/28/18 10/28/18 08:52 12:55 12:55 WBC 11.9 H RBC 3.84 L Hgb 11.7 L Hct 34.6 L MCV 90.1 MCH 30.5 MCHC 33.8 RDW 13.3 RDW Differential 44.0 H Plt Count 330 MPV 9.3 Immature Gran % (Auto) 0.300 Neut % (Auto) 77.5 H Lymph % (Auto) 11.9 L [place] % (Auto) 9.4 Eos % (Auto) 0.8 Baso % (Auto) 0.1 Absolute Neuts (auto) 9.2 H Absolute Lymphs (auto) 1.41 Total Counted Not Reportable Diff Path Review Reviewed Sodium 138 Potassium 3.3 L Chloride 108 H Carbon Dioxide 24.0 Anion Gap 6 BUN 11 Creatinine 0.92 Estim Creat Clear Calc 96.98 Est GFR (MDRD) Af Amer 110 Est GFR (MDRD) Non-Af 91 BUN/Creatinine Ratio 11.9 Glucose 161 H Calcium 8.0 L 10/29/18 10/29/18 04:59 04:59 WBC 8.6 RBC 4.03 L Hgb 12.3 L Hct 37.8 L MCV 93.8 MCH 30.5 MCHC 32.5 RDW 13.3 RDW Differential 44.1 H Plt Count 354 MPV 9.5 Immature Gran % (Auto) Neut % (Auto) Lymph % (Auto) [place] % (Auto) Eos % (Auto) Baso % (Auto) Absolute Neuts (auto) Absolute Lymphs (auto) Total Counted Diff Path Review Sodium 142 Potassium 4.3 Chloride 108 H Carbon Dioxide 29.0 Anion Gap 5 BUN 9 Creatinine 0.87 Estim Creat Clear Calc 102.55 Est GFR (MDRD) Af Amer 119 Est GFR (MDRD) Non-Af 98 BUN/Creatinine Ratio 10.4 Glucose 100 Calcium 8.3 L Discharge Diet: No Restrictions Discharge Activity: Return to Normal Activity Call your doctor if you observe: Fever of 101 or Higher, Shortness of breath, Dizziness, Chest pain Home Medications: Medications to take at Discharge Albuterol IH (ProAir) [Proair Hfa] 2 puff INHALATION Q4H PRN PRN 11/29/15 Budesonide/Formoterol 80-4.5 [Symbicort 80-4.5 Mcg Inhaler] 2 puff INHALATION BID 11/29/15 Apixaban [Eliquis] 2.5 mg PO BID #60 tab 04/14/18 Amox/Clavulanate Tablet [Augmentin Tablet] 875 mg PO Q12H #14 tablet 10/29/18 Following Prescrptions Were Given to Patient: Amox/Clavulanate Tablet [Augmentin Tablet] 875 mg PO Q12H #14 tablet Primary Care Physician: Troy Thomas DO [Primary Care Provider] - Please follow up with your Primary Care Physician in: 1 Week Disposition: Home Minutes spent on discharge:: 35 Patient Condition:: Stable Medical Necessity - Tobacco Use Smoking Status: Never smoker Meaningful Use Info Meaningful Use Diagnoses (Choose all that apply): None applicable <BarberNoeChu - Last Filed: 10/29/18 12:45> Discharge Date and Diagnosis - Secondary Discharge Diagnosis Chronic Problems (Last Reviewed 10/13/18 @ 15:26 by Kelly Santana) Non compliance with medical treatment (Chronic) DVT (deep venous thrombosis) (Chronic) Hyperlipidemia (Chronic) Hypertension (Chronic) Hospital Course and Treatment Summary of Care Provided: [] This patient was seen in conjunction with PHYSICAL METALLURGISTAnnel. I have independently interviewed and examined the patient and reviewed pertinent history, examination findings, laboratory and plan of management. I have reviewed the note and agree with the documented findings with the few additional points. In brief, patient is 53-year-old gentleman with history of COPD, recurrent DVT/PE admitted for severe sepsis secondary to multilobar community- acquired pneumonia. Patient is on IV Rocephin and Zithromax, Mucinex, DuoNeb and albuterol nebulization. Incentive spirometry. Urinary antigens are negative. Mild hypokalemia:Potassium replaced. K4.3. He has a history of recurrent DVT/PE on lifelong Eliquis 2.5 mg, prophylactic DVT dose. Discharged on albuterol and Symbicort inhaler, Augmentin. Mucinex. I have discussed my assessment with Annel BERUMEN and orders have been reviewed. Discharge medication reconciliation done. Discharge follow-up instructions completed. Discharge process discussed with the patient and all questions were answered to patient's satisfaction. Total time spent, exact 35 minutes on discharge meds reconciliation, examination, review of imaging and blood test and discussion with the patient on follow-up instructions. Subjective: Shortness of breath is much improved. Patient is still has cough and is using flutter valve and incentive spirometry. On Mucinex. No tachypnea or hypoxia. - Physical Exam General: Alert, Oriented x3, Cooperative HEENT: Atraumatic, PERRLA, EOMI, Normocephalic Neck: Supple, No JVD, Negative Carotid Bruits Lungs: Diminished - Air entry has much improved, Rhonchi, Wheezes - Has much improved and now occasional Cardiovascular: Regular rate, Regular Rhythm, Normal S1, Normal S2, No murmurs Abdomen: Bowel Sounds Present, Soft, Non Tender, Non-Distended Extremities: No edema, Capillary Refill Less than 3 Seconds Skin: No rashes, No breakdown Musculoskeletal: No Tenderness to Palpation of Joints or Extremities Lymphatic: No Cervical, Supraclavicular, or Inguinal Adenopathy Neurological: Cranial nerves II-XII grossly intact, Deep Tendon Reflexes 2+/4 and Symmetrical, Neuro grossly intact Psych/Mental Status: Normal Affect, Appropriate Vital Signs Temp Pulse Resp BP Pulse Ox 98.4 F 105 H 20 H 130/64 H 97 10/29/18 11:37 10/29/18 11:37 10/29/18 11:37 10/29/18 11:37 10/29/18 11:37 Oxygen Flow Rate (L/min) 2 Oxygen Delivery Method Room Air Weight: 220 lb 14.451 oz Body Mass Index (BMI) 31.6 Intake and Output for Last 24 Hours 10/27/18 10/28/18 10/29/18 23:59 23:59 23:59 Intake Total 480 / 480 4100 / 4100 1309 / 1309 Output Total 1825 / 1825 875 / 875 Balance 480 / 480 2275 / 2275 434 / 434 Microbiology Past 72 Hours 10/27/18 15:09 Group A Streptococcus Rapid Screen - Final Mucosa - Nasopharyngeal 10/27/18 10:47 Gram Stain - Final Sputum, Expectorated/Coughed Respiratory Culture - Final 10/27/18 14:15 Urine Culture - Final Urine, Clean Catch Mixed Gram Positive Organisms 10/28/18 Unknown Respiratory Panel (PCR) - Final Mucosa - Nasopharyngeal 10/27/18 14:15 Legionella Antigen - Final Urine, Random Streptococcus pneumoniae Antigen (M - Final Laboratory Tests Past 24 Hrs 10/27/18 10/28/18 10/28/18 08:52 12:55 12:55 WBC 11.9 H RBC 3.84 L Hgb 11.7 L Hct 34.6 L MCV 90.1 MCH 30.5 MCHC 33.8 RDW 13.3 RDW Differential 44.0 H Plt Count 330 MPV 9.3 Immature Gran % (Auto) 0.300 Neut % (Auto) 77.5 H Lymph % (Auto) 11.9 L [place] % (Auto) 9.4 Eos % (Auto) 0.8 Baso % (Auto) 0.1 Absolute Neuts (auto) 9.2 H Absolute Lymphs (auto) 1.41 Total Counted Not Reportable Diff Path Review Reviewed Sodium 138 Potassium 3.3 L Chloride 108 H Carbon Dioxide 24.0 Anion Gap 6 BUN 11 Creatinine 0.92 Estim Creat Clear Calc 96.98 Est GFR (MDRD) Af Amer 110 Est GFR (MDRD) Non-Af 91 BUN/Creatinine Ratio 11.9 Glucose 161 H Calcium 8.0 L 10/29/18 10/29/18 04:59 04:59 WBC 8.6 RBC 4.03 L Hgb 12.3 L Hct 37.8 L MCV 93.8 MCH 30.5 MCHC 32.5 RDW 13.3 RDW Differential 44.1 H Plt Count 354 MPV 9.5 Immature Gran % (Auto) Neut % (Auto) Lymph % (Auto) [place] % (Auto) Eos % (Auto) Baso % (Auto) Absolute Neuts (auto) Absolute Lymphs (auto) Total Counted Diff Path Review Sodium 142 Potassium 4.3 Chloride 108 H Carbon Dioxide 29.0 Anion Gap 5 BUN 9 Creatinine 0.87 Estim Creat Clear Calc 102.55 Est GFR (MDRD) Af Amer 119 Est GFR (MDRD) Non-Af 98 BUN/Creatinine Ratio 10.4 Glucose 100 Calcium 8.3 L Code Visit Inpatient E&M: 42740 Disch Hosp
--- NOTE | 2018-11-01 15:23 | CASEMGMT ---
RN CM Discharge F/U Phone Call LACE: 11 Strata: 3 Discharge date: 10/29/18 Call date: 11/01/18 Call time: 1523 Attempted to reach pt without success at this time, this RN CM did not leave message as a female voice was on the message. SStaten RN CM Admission dx: Sepsis, RML CAP
== END 2018-10-29 12:20 | disposition home or self-care (01) | DRG 871 ==
LOC: ED 09:51 → PCU 10:21
PROVIDERS: Nurse Practitioner Family; Admitting Provider Internal Medicine; Emergency Provider Emergency Medicine; Family Provider Family Medicine; PCP Family Medicine; Visit Provider Internal Medicine
DX: A41.9 Sepsis, unspecified organism (principal); J18.1 Lobar pneumonia, unspecified organism; I10 Essential (primary) hypertension; R65.20 Severe sepsis without septic shock; E78.5 Hyperlipidemia, unspecified; E87.6 Hypokalemia; Z91.14 Patient's other noncompliance with medication regimen; Z86.718 Personal history of other venous thrombosis and embolism; Z86.711 Personal history of pulmonary embolism; Z79.01 Long term (current) use of anticoagulants; J02.0 Streptococcal pharyngitis
CPT/HCPCS: 36415; 71045; 71046; 80048; 80053; 81001; 81002; 83605; 85025; 85027; 85610; 85730; 87040; 87070; 87077; 87086; 87088; 87205; 87449; 87633; 87880; 93005; 94640; 94667; 94668; 99282; 99285; J7030; A4216

== ENCOUNTER 2018-11-11 13:00 | Emergency (ER) | payer MEDICARE, MEDICAID, SELFPAY ==
[2018-10-27 10:53] VITALS: BMI 31.6
[2018-11-11 13:01] VITALS: BP 125/82; PULSE 108; RESP 18; TEMP 36.3; O2SAT 95; BMI 31.7
[2018-11-11] MEDS: Ondansetron 4 MG/2 ML Vial IV (13:36)
[2018-11-11] MEDS: 0.9% Normal Saline 1,000 ML 1000 ML IV (13:36)
[2018-11-11] MEDS: Morphine 4 MG/ML Syringe IV (13:37)
[2018-11-11 13:39] LABS: Color, Urine Yellow (Yellow); Glucose, Dipstick Normal (Normal); Ketone-Dipstick Negative (Negative); Leukocyte Esterase-Dipstick 25 /ul (Negative); Nitrite-Dipstick Negative (Negative); Occult Blood-Urine 10 /ul (Negative); Protein-Dipstick 30 mg/dl (Negative); Red Blood Cells-Urine 0 SEEN /hpf (0-5); Urine Clarity Sl. Cloudy (Clear); Urine Urobilinogen Normal (Normal)
[2018-11-11] MEDS: Dicyclomine 20 MG/2 ML Vial IM (13:39)
[2018-11-11 13:41] LABS: Absolute Lymphocyte Count 0.82 X10^3/ul (0.83-4.51); Absolute Neutrophil Count 5.4 X10^3/uL (2.0-7.7); Basophil# 0.01 X10^3/uL; Basophil% 0.1 % (0-1); Eosinophil# 0.08 X10^3/uL; Eosinophils% 1.2 % (0-5); Hematocrit 43.4 % (40-54); Hemoglobin 14.5 g/dl (13.0-16.5); Lymphocyte # 0.82 X10^3/ul (4.0); Lymphocyte % 11.9 % (19-41); Mean Corp Hgb Conc 33.4 g/gl (32-36); Mean Corpuscular Hgb 30.7 pg (27.0-32.0); Mean Corpuscular Volume 91.9 fL (80-94); Mean Platelet Vol. 9.5 fl (6.2-12.0); Monocyte# 0.61 X10^3/uL; Monocyte% 8.9 % (0-10); Neutrophil # 5.37 X10^3/uL (2.7-7.7); Neutrophil % 77.9 % (47-70); Platelet Count 250 K/mm3 (150-450); RBC Distribution Width SD 46.8 fl (35.1-43.9); Red Blood Count 4.72 M/mm3 (4.6-6.2); Urine Bilirubin Dipstick 1 mg/dL (Negative); White Blood Count 6.9 K/mm3 (4.4-11.0)
[2018-11-11 13:42] LABS: POSITIVE COUNT NO; POSITIVE DIFFERENTIAL NO; POSITIVE MORPHOLOGY NO
[2018-11-11 13:45] LABS: Bacteria RARE /hpf (None Seen); Mucous, Urine 1+ /hpf (<or=2+); Squamous Epithelial Cells - UA 0-5 SEEN /hpf (0-5); White Blood Cells 0-5 SEEN /hpf (0-5)
[2018-11-11 14:00] LABS: BUN 14 mg/dL (7-18); Creatinine, Serum 1.01 mg/dL (0.70-1.30); EST Glomerular Filtration Rate 82 mL/min (>60); Estimated Creatinine Clearance 91.12 ml/min; Glucose 104 mg/dL (74-106)
[2018-11-11 14:01] LABS: ALB/GLOB Ratio 0.8 RATIO (0.9-2.4); AST(SGOT) 23 U/L (15-37); Alanine Aminotransfer ALT/SGPT 44 U/L (16-61); Albumin, Serum 3.2 g/dL (3.2-5.0); Alkaline Phosphatase 94 U/L (45-117); Anion Gap 6 (5-15); BUN/Creat Ratio 13.9 RATIO (10-20); Calcium,Total 8.1 mg/dL (8.5-10.1); Chloride 106 mmol/L (98-107); Est Glom Filt Rate - Afr Amer 100 mL/min (>60); Globulin 4.2 g/dL (2.2-4.2); Potassium 3.9 mmol/L (3.5-5.1); Protein, Total 7.4 g/dL (6.4-8.2); Sodium Level 136 mmol/L (136-145)
[2018-11-11 14:02] LABS: Lactic Acid 1.1 mmol/L (0.4-2.0)
--- NOTE | 2018-11-11 14:07 | ED.RN ---
PT STATES STILL VERY PAINFUL. ALL LAB WORK BACK. AWARE. WILL EVALUATE TEST RESULTS
--- NOTE | 2018-11-11 14:10 | CT_ITS ---
STUDY: CT ABDOMEN AND PELVIS WITHOUT CONTRAST REASON FOR EXAM: Male, 53 years old. Right flank pain with nausea and vomiting. RADIATION DOSAGE (If Supplied By Facility): CTDIvol = ( 13.33 ) mGy, DLP = ( 752.92 ) mGycm TECHNIQUE: Transaxial images were obtained from the dome of the diaphragm to the symphysis pubis without oral contrast, and without intravenous contrast. Sagittal and coronal images were reconstructed. Individualized dose optimization techniques were used for this CT. COMPARISON: Comparison is made with prior study dated October 14, 2017. FINDINGS: Focal linear infiltrate and/or scarring at the right lung base. This has progressed as compared to prior study. The visualized portions of the heart are within normal limits. Normal liver. Normal gallbladder and extrahepatic biliary system. Normal spleen. Normal pancreas. Normal bilateral adrenal glands. Stable punctate calcification in the midpole calyx of the right kidney. There is a 2 mm calculus in the lower pole calyx of the left kidney. Normal visualized stomach. Normal small intestine. There are scattered colonic diverticula consistent with diverticulosis. The appendix is visualized and appears normal. Normal abdominal aorta. Normal inferior vena cava. There is borderline retroperitoneal lymphadenopathy with enlarged nodes no greater than 10mm in the short axis diameter. Bladder wall thickening. There is enlargement of the prostate gland. It measures 4.1 cm x 4.2 cm. There is a small umbilical hernia containing fat. There are mild degenerative changes of the visualized lumbar spine. CT/Abdomen/Pelvis without Cont IMPRESSION: Stable punctate calcifications in both kidneys as described. Scattered sigmoid diverticulosis. Electronically Signed: Rl Conway, at 14:40 EDT , Service support ,
--- NOTE | 2018-11-11 14:50 | ED.VISSUMM ---
- ER Visit Summary Date of Service: 11/11/18 Chief Complaint: [Abdominal pain, vomiting, diarrhea] History of Present Illness: The patient is a 53 M [presents the emergency department with planes of vomiting and diarrhea started last evening around 7 PM. Patient also complains of intermittent sharp stabbing pains throughout his abdomen. Patient denies any fever. He denies any sick contacts. Patient states he was recently admitted for pneumonia and discharged on 329. Patient has a history of hypertension, high cholesterol, DVT in the right leg, and history of UTI. Patient has had some dysuria symptoms. He denies hematuria. Patient denies blood in the stool or black tarry stool.] Physical Examination: [HEENT-PERRLA, EOMI. Cranial nerves II through XII grossly intact. TMs clear. Mucous membranes moist. No adenopathy. Cardiovascular-regular rate and rhythm without murmur or ectopy Lungs-clear to auscultation, chest wall stable without crepitus or subcu emphysema Abdomen-normoactive bowel sounds, soft. Patient has diffuse tenderness palpation. There is no rebound, rigidity, or perineal signs. Extremities-intact ?4, normal range of motion, normal pulses, atraumatic] Test Results: [CBC with differential obtained showed a white count of 6.9, hemoglobin 14, hematocrit 43, platelets 250. Chemistries unremarkable. LFTs were normal. Urinalysis unremarkable. CT scan of the abdomen pelvis without contrast showed some punctate calcifications in both kidneys otherwise nothing acute.] Emergency Department Course and Treatment: [Patient was given a liter normal same fluid bolus as well as morphine, Zofran, and Bentyl.] Treatment Plan: [Patient will be given a prescription for Bentyl and Zofran. Discharged home stable condition] Disposition: [Discharged home in stable condition. Patient advised to return if worsening pain, persistent vomiting, diarrhea, dehydration, or condition should worsen anyway.] Impression: [Viral gastroenteritis] This note was generated with [employer] dictation software. It may contain incorrect words, spelling, and punctuation that were not noted in review of the chart prior to signing ED Disposition - Plan for ED Patient: Referrals: Troy Thomas DO [Primary Care Provider] -
--- NOTE | 2018-11-11 14:54 | ED.DEP ---
ED Disposition - Plan for ED Patient: Instructions: ED Gastroenteritis Viral Prescriptions: Ondansetron [Zofran Odt] 4 mg PO Q8H PRN PRN #10 tab PRN Reason: Nausea Dicyclomine HCl [Bentyl] 20 mg PO TIDAC #20 cap Referrals: Troy Thomas DO [Primary Care Provider] - 3-5 Days
[2018-11-11 15:25] VITALS: BP 127/84; PULSE 71; RESP 16; TEMP 36.2; O2SAT 98
== END 2018-11-11 15:27 | disposition home or self-care (01) ==
LOC: ED 13:50
PROVIDERS: Emergency Provider Emergency Medicine; Family Provider Family Medicine; PCP Family Medicine
DX: A08.4 Viral intestinal infection, unspecified (principal); I10 Essential (primary) hypertension; E78.00 Pure hypercholesterolemia, unspecified; Z87.440 Personal history of urinary (tract) infections; Z86.718 Personal history of other venous thrombosis and embolism
CPT/HCPCS: 74176; 80053; 81001; 83605; 85025; 96361; 96372; 96374; 96375; 99283; J7030; A4216; J2405

== ENCOUNTER 2018-12-24 03:29 | Emergency (ER) | payer MEDICARE, MEDICAID, SELFPAY ==
[2018-12-24 03:31] VITALS: BP 130/93; PULSE 94; RESP 20; TEMP 36.4; O2SAT 97; BMI 33.7
[2018-12-24 03:36] VITALS: O2SAT 97
--- NOTE | 2018-12-24 03:43 | RAD_ITS ---
HISTORY: Cough and congestion. EXAM/TECHNIQUE: XR Chest 2 Views: COMPARISON: 10/27/18 CXR FINDINGS: # of images incl. paperwork: 3 No evidence of pneumothorax, pleural effusion, pneumonia, or pulmonary edema. Mild linear atelectasis/scarring in the right middle lobe and lingula. Aeration is improved compared to prior. Heart size normal. No acute osseous abnormality. RAD/Chest PA and Lateral IMPRESSION: No acute findings. at 0447 Reported and signed by: Blayne Brown MD Electronically Signed: Blayne Brown, at 4:46 EDT Tel , Service support ,
[2018-12-24] MEDS: Ipratropium/Albuterol Sulfate 3 ML AMPUL.NEB INHALATION (03:53)
[2018-12-24 03:55] VITALS: PULSE 94; RESP 18
[2018-12-24] MEDS: 0.9% Normal Saline 1,000 ML 999 ML IV ×2 (03:59→04:59)
[2018-12-24 04:02] LABS: Absolute Lymphocyte Count 2.48 X10^3/ul (0.83-4.51); Absolute Neutrophil Count 3.6 X10^3/uL (2.0-7.7); Basophil# 0.04 X10^3/uL; Basophil% 0.6 % (0-1); Eosinophil# 0.15 X10^3/uL; Eosinophils% 2.1 % (0-5); Hemoglobin 14.3 g/dl (13.0-16.5); Lymphocyte # 2.48 X10^3/ul (4.0); Lymphocyte % 34.3 % (19-41); Mean Corpuscular Hgb 30.6 pg (27.0-32.0); Mean Corpuscular Volume 89.9 fL (80-94); Mean Platelet Vol. 9.4 fl (6.2-12.0); Monocyte# 0.91 X10^3/uL; Monocyte% 12.6 % (0-10); Neutrophil # 3.64 X10^3/uL (2.7-7.7); Neutrophil % 50.3 % (47-70); POSITIVE COUNT NO; POSITIVE DIFFERENTIAL NO; POSITIVE MORPHOLOGY NO; Platelet Count 271 K/mm3 (150-450); RBC Distribution Width CV 13.7 % (11.6-14.6); RBC Distribution Width SD 44.9 fl (35.1-43.9); Red Blood Count 4.67 M/mm3 (4.6-6.2); White Blood Count 7.2 K/mm3 (4.4-11.0)
[2018-12-24 04:15] LABS: Anion Gap 9 (5-15); BUN 13 mg/dL (7-18); BUN/Creat Ratio 11.8 RATIO (10-20); Calcium,Total 8.4 mg/dL (8.5-10.1); Chloride 109 mmol/L (98-107); EST Glomerular Filtration Rate 75 mL/min (>60); Est Glom Filt Rate - Afr Amer 90 mL/min (>60); Estimated Creatinine Clearance 81.11 ml/min; Glucose 114 mg/dL (74-106); Potassium 3.6 mmol/L (3.5-5.1); Sodium Level 144 mmol/L (136-145)
--- NOTE | 2018-12-24 04:50 | ED.RN ---
lab called with critical lab results.Dr. Wilkins made awaware no new orders at this time
[2018-12-24 05:29] VITALS: BP 121/79; PULSE 77; RESP 19; O2SAT 93
--- NOTE | 2018-12-24 06:07 | ED.DCSUM_ITS ---
- ER Visit Summary Date of Service: 12/24/18 Chief Complaint: Shortness of breath History of Present Illness: The patient is a 53 M who presents with shortness of breath. Patient initially developed a nonproductive cough about a week ago. Last night he began to have some thick yellow sputum. He also complains of dyspnea on exertion since yesterday. He reports subjective fevers. He had 4 episodes of nonbloody nonbilious emesis yesterday. He denies any pain. He was admitted in October for pneumonia. Physical Examination: Afebrile heart rate 94, respiratory rate 20, pulse ox 97% Moist mucous membranes Heart regular rate and rhythm Lungs are clear Abdomen soft Alert Test Results: CBC, BMP normal. Two-view chest x-ray shows no acute findings. Initial lactic acid 3.0. Emergency Department Course and Treatment: Patient's lungs were actually relatively clear although he does complain of wheezing at home prior to presentation. He was given a DuoNeb aerosol as well as IV fluids. Although he does have mild elevation of lactic acid he has no clear focal bacterial infection. His chest x-ray is normal. I suspect this may be due to a component of dehydration. After IV fluids repeat lactic acid is normal. We will put him on a course of prednisone. He understands to return for new or worsening symptoms. He is agreeable to this plan and the patient was discharged. Treatment Plan: [] Disposition: Discharge Impression: Bronchitis This note was generated with [employer] dictation software. It may contain incorrect words, spelling, and punctuation that were not noted in review of the chart prior to signing ED Disposition - Plan for ED Patient: Referrals: Troy Thomas DO [Primary Care Provider] -
[2018-12-24 06:37] LABS: Lactic Acid 1.3 mmol/L (0.4-2.0)
--- NOTE | 2018-12-24 06:47 | ED.DEP ---
ED Disposition - Plan for ED Patient: Instructions: Acute Bronchitis Prescriptions: predniSONE tablet 60 mg PO DAILY #15 tab Referrals: Troy Thomas DO [Primary Care Provider] -
[2018-12-24 06:55] VITALS: BP 134/89; PULSE 91; RESP 16; O2SAT 97
[2018-12-24 07:57] LABS: Reflex Lactate? Y
== END 2018-12-24 06:59 | disposition home or self-care (01) ==
PROVIDERS: Emergency Provider Emergency Medicine; Family Provider Family Medicine; PCP Family Medicine
DX: J40 Bronchitis, not specified as acute or chronic (principal); R11.2 Nausea with vomiting, unspecified; J45.909 Unspecified asthma, uncomplicated; Z86.711 Personal history of pulmonary embolism; Z86.718 Personal history of other venous thrombosis and embolism; Z87.01 Personal history of pneumonia (recurrent); Z79.01 Long term (current) use of anticoagulants; Z72.0 Tobacco use
CPT/HCPCS: 71046; 80048; 83605; 85025; 87040; 94640; 96360; 99283; J7030; A4216

== ENCOUNTER → 2019-08-22 12:20 | Outpatient (CLI) | payer MEDICARE, MEDICAID, SELFPAY ==
[2019-04-13 14:21] VITALS: BMI 32.5
--- NOTE | 2019-08-22 12:25 | ART_ITS ---
Reason For Study: FOOT NUMBNESS, PAIN Procedure A bilateral lower extremity continuous wave Doppler with analog waveform analysis and ankle brachial indexes. Left Segmental Pressures Left brachial= 139mmHg. Left posterior tibial artery = 191mmHg. Left dorsalis pedis artery = 176mmHg. The left dorsalis pedis waveforms are triphasic. The left posterior tibial artery waveforms are triphasic. Right Segmental Pressures Right brachial= 131mmHg. Right posterior tibial artery = 186mmHg. Right dorsalis pedis artery = 167mmHg. The right dorsalis pedis waveforms are triphasic. The right posterior tibial artery waveforms are triphasic. Indices The right resting ankle brachial index is 1.34. The right ankle brachial index by the dorsalis pedis is 1.2. The right ankle brachial index by the posterior tibial artery is 1.34. The left resting ankle brachial index is 1.37. The left ankle brachial index by the dorsalis pedis is 1.27. The left ankle brachial index by the posterior tibial artery is 1.37. Interpretation Summary Triphasic Doppler waveforms are noted at ankle level bilaterally. Pulse-volume recordings appear satisfactory at ankle level bilaterally. Resting ankle-brachial indices are normal bilaterally. There is no evidence of significant arterial occlusive disease in the lower extremities bilaterally. Ordering Physician: Troy Thomas Referring Physician: Troy Thomas Performed By: Vivian Hansen RVT, RDCS
== END ==
PROVIDERS: Family Provider Family Medicine; PCP Family Medicine; Referring Provider Family Medicine; Visit Provider Family Medicine
DX: R09.89 Other specified symptoms and signs involving the circulatory and respiratory systems (principal); R20.0 Anesthesia of skin; R20.2 Paresthesia of skin
CPT/HCPCS: 93922

== ENCOUNTER → 2020-06-01 | Outpatient (CLI) | payer MEDICARE, SELFPAY ==
[2019-12-21 15:10] VITALS: BMI 32.8
== END | disposition home or self-care (01) ==
LOC: LABSPEC 16:30
PROVIDERS: PCP Family Medicine; Visit Provider Family Medicine
DX: R05 Cough (principal); Z20.828 Contact with and (suspected) exposure to other viral communicable diseases
CPT/HCPCS: 87635; U0003

== ENCOUNTER → 2020-08-29 14:29 | Outpatient (CLI) | payer MEDICARE, SELFPAY ==
[2019-12-21 15:10] VITALS: BMI 32.8
--- NOTE | 2020-08-29 14:31 | VDLE_ITS ---
Reason For Study: Pain RIGHT LEFT GSV is normal. GSV is normal. CFV is compressible, spontaneous, phasic, CFV is compressible, spontaneous, phasic, competent and demonstrates normal competent, and demonstrates normal augmentation. augmentation. FV is compressible, spontaneous, phasic, FV is compressible, spontaneous, phasic, competent and demonstrates normal competent and demonstrates normal augmentation. augmentation. POP V is compressible, spontaneous, phasic, POP V is compressible, spontaneous, phasic, competent and demonstrates normal competent and demonstrates normal augmentation. augmentation. T/P Trunk is compressible. T/P Trunk is compressible. PTV is compressible. PTV is compressible. RT PerV is compressible. LT PerV is compressible. Procedure This is a venous duplex using B-mode, color flow and spectral Doppler. Exam performed in department. A preliminary report was called and/or faxed to [facility]. Interpretation Summary No evidence for acute deep venous thrombosis bilateral lower extremities with patent and compressible bilateral great saphenous veins. Ordering Physician: Fredrick Crowley Referring Physician: Troy Thomas Performed By: Jeniffer Mosley RVT
== END ==
LOC: CVS 14:30
PROVIDERS: PCP Family Medicine; Referring Provider Internal Medicine Medical Oncology; Visit Provider Internal Medicine Medical Oncology
DX: M79.604 Pain in right leg (principal); Z86.718 Personal history of other venous thrombosis and embolism
CPT/HCPCS: 36415; 80053; 83615; 85025; 85379; 85610; 85730; 93970

== ENCOUNTER → 2023-10-12 | Outpatient (CLI) | payer MEDICARE, SELFPAY ==
--- NOTE | 2023-10-12 14:38 | VDLE_ITS ---
Reason For Study: Right leg swelling RIGHT LEFT GSV is normal. CFV is compressible, spontaneous, phasic, CFV is compressible, spontaneous, phasic, competent, and demonstrates normal competent and demonstrates normal augmentation. augmentation. FV prox is compressible with normal venous flow noted. Acute deep vein thrombosis is noted in the FV mid-distal, PopV, T/P trunk and GastrocV. It is NONCOMPRESSIBLE and dilated. PTV is compressible. RT PerV is compressible. Procedure This is a venous duplex using B-mode, color flow and spectral Doppler. Exam performed in department. A preliminary report was called and/or faxed to Ingrid MORFIN. VL/Venous Duplex US, Unilateral Interpretation Summary Acute deep vein thrombosis is noted in the right femoral vein, popliteal vein, tibioperoneal trunk vein, gastrocnemius vein. Ordering Physician: Fredrick Crowley Referring Physician: Troy Thomas Performed By: Jeniffer Mosley RVT
== END | disposition home or self-care (01) ==
LOC: CVS 14:38
PROVIDERS: PCP Family Medicine; Referring Provider Internal Medicine Medical Oncology; Visit Provider Internal Medicine Medical Oncology
DX: I82.511 Chronic embolism and thrombosis of right femoral vein (principal); M79.604 Pain in right leg
CPT/HCPCS: 93971

== ENCOUNTER → 2024-10-10 | Outpatient (CLI) | payer MEDICARE, SELFPAY ==
--- NOTE | 2024-10-10 12:41 | VDLE_ITS ---
Reason For Study Reason For Study: BLE Swelling RIGHT LEFT GSV is normal. GSV is normal. CFV is compressible, spontaneous, phasic, competent CFV is compressible, spontaneous, phasic, competent, and demonstrates normal augmentation. and demonstrates normal augmentation. FV Prox and Mid is compressible, spontaneous, phasic, FV is compressible, spontaneous, phasic, competent competent and demonstrates normal augmentation. and demonstrates normal augmentation. Acute deep vein thrombosis is noted in DISTAL FV. The POP V is compressible, spontaneous, phasic, competent vessel is dilated and NONCOMPRESSIBLE. and demonstrates normal augmentation. Acute deep vein thrombosis is noted in the POP V. It T/P Trunk is compressible. is dilated and NONCOMPRESSIBLE. PTV is compressible. Acute deep vein thrombosis is noted in the T/P Trunk. LT PerV is compressible. It is dilated and NONCOMPRESSIBLE. Acute deep vein thrombosis is noted in the PTV. It is dilated and NONCOMPRESSIBLE. RT PerV is compressible. Procedure This is a venous duplex using B-mode, color flow and spectral Doppler. Exam performed in department. The exam was diagnostic. A preliminary report was called and/or faxed to Tarcey Gregory RN at [facility]. VL/Venous Duplex US - Alvin Extrem Interpretation Summary Acute deep vein thrombosis noted in right femoral vein, popliteal vein, tibiope roenal trunk vein, posterior tibial vein. Deep veins of the left lower extremity are patent and compressible segmentally. There is no evidence of left lower extremity deep vein thrombosis. The bilateral great saphenous veins appear stapleton nt and compressible segmentally. Ordering Physician: Fredrick Crowley Referring Physician: Troy Thomas Performed By: Eloy Donovan RVT
== END | disposition home or self-care (01) ==
LOC: CVS 12:40
PROVIDERS: PCP Family Medicine; Referring Provider Internal Medicine Medical Oncology; Visit Provider Internal Medicine Medical Oncology
DX: Z86.718 Personal history of other venous thrombosis and embolism (principal); I26.99 Other pulmonary embolism without acute cor pulmonale
CPT/HCPCS: 93970

== ENCOUNTER → 2024-10-31 | Outpatient (CLI) | payer MEDICARE, SELFPAY ==
--- NOTE | 2024-10-31 09:41 | VDLE_ITS ---
Reason For Study Reason For Study: Swelling RLE RIGHT LEFT GSV is normal. CFV is compressible, spontaneous, phasic, competent, CFV is compressible, spontaneous, phasic, competent and demonstrates normal augmentation. and demonstrates normal augmentation. Rt FV prox/mid is compressible Rt FV distal, Rt PopV, and Rt T/P Trunk are PARTIALLY COMPRESSIBLE Rt Soleus V is partially compresisble with bright intraluminal echoes consistent with chronic DVT. PTV is compressible. RT PerV is compressible. Procedure This is a venous duplex using B-mode, color flow and spectral Doppler. Exam performed in department. A preliminary report was called and/or faxed to Lizzette NUÑEZ. VL/Venous Duplex US, Unilateral Interpretation Summary Acute deep vein thrombosis noted in right femoral vein, popliteal vein, tibiope roneal trunk vein with some resolution since previous imaging. Chronic deep vein thrombosis noted in right soleus vein. Ordering Physician: Lizzette Perez Referring Physician: Troy Thomas Performed By: Francy Iqbal RDCS, RVT
== END | disposition home or self-care (01) ==
PROVIDERS: PCP Family Medicine; Referring Provider Physician Assistant; Visit Provider Physician Assistant
DX: R60.0 Localized edema (principal); I82.401 Acute embolism and thrombosis of unspecified deep veins of right lower extremity; Z86.718 Personal history of other venous thrombosis and embolism; M79.604 Pain in right leg
CPT/HCPCS: 93971

== ENCOUNTER 2024-11-23 15:07 | Inpatient (IN) | payer MEDICARE, SELFPAY ==
[2024-11-23 08:35] VITALS: BMI 30.4
--- NOTE | 2024-11-23 15:12 | PCM.HP.STD ---
HPI - General General Date of Admission: 11/23/24 HPI Narrative RAVI STEWARD, is a 59 M who is admitted today for heparin bridge to planned venogram in the [facility] tomorrow. He has a recurrent unprovoked RLE DVT up to the femoral vein which has occurred despite anticoagulation with Eliquis. As an outpatient he was changed to lovenox which he has been taking as directed but without much relief in his symptoms. Plan was for him to continue Lovenox until his admission here for heparin bridging; however, he states hematology told him to hold the lovenox for 2 days before surgery so he has not administered it since Thursday night. He has noticed some worsened RLE edema, still with intermittent pain. No CP, SOB, palpitations. No other significant changes to his medical history since his last OV. No other complaints or concerns today. Plan remains for venogram to evaluate for central venous compression which could be contributing to recurrent DVT despite anticoagulation; no plan for thrombectomy as his clot is just to the distal FV on most recent duplex. [facility] Medical History Deep vein thrombosis (DVT) of right lower extremity Kidney stone Hypoglycemia History of pneumonia Arthritis Home Medications ?Medication ?Instructions ?Recorded ?Last Taken ?Type albuterol sulfate 90 mcg/actuation 2 puff inhalation Q4H PRN PRN Sob 11/29/15 Unknown History aerosol inhaler (ProAir HFA) &/Or Wheezing budesonide-formoterol HFA 80 2 puff inhalation BID COPD 11/29/15 10/27/18 History mcg-4.5 mcg/actuation aerosol inhaler (Symbicort) Allergy/AdvReac Type Severity Reaction Status Date / Time venom-honey bee (bee venom Allergy Anaphylaxis Verified 11/21/24 14:36 (honey bee)) Family History Mother Hypertension Diabetes Father Lung cancer Heart disease Other Asthma Surgical History History of bilateral inguinal hernia repair History of umbilical hernia repair History of tonsillectomy History of hernia repair Social History Smoking Status: Never smoker Vital Signs Vital Signs Vital Signs: Weight Weight: 231 lb Body Mass Index (BMI) 30.4 Physical Exam Narrative Const General: cooperative, comfortable and no acute distress Orientation: alert, awake and oriented x3 HENMT Head: normal to inspection, normocephalic and atraumatic Ears: hearing grossly normal bilaterally and external ears normal Nose: external nose normal Eyes General: appearance normal, both eyes and all related structures EOM: EOM intact bilaterally Neck Neck: normal visual inspection and trachea midline Carotids: no bruits Resp Effort & Inspection: normal respiratory effort, able to speak in complete sentences, not labored, no respiratory distress, no retractions, no stridor and no use of accessory muscles Auscultation: clear to auscultation bilaterally Cardio Rate: regular rate Rhythm: regular rhythm Heart Sounds: no murmurs Bruits: no carotid bruits Pulses: brachial pulses present and radial pulses present Skin General: no rashes or lesions noted Trauma: no lacerations or abrasions Wounds: no wounds Neuro General: gait normal, moves all extremities, no focal motor deficits and CN's II-XI intact bilaterally Speech: speech normal Sensory Exam: no sensory deficits noted Extremities Pulses: Normal: Right Dorsalis Pedis Pulse, Left Dorsalis Pedis Pulse, Right Posterior Tibial Pulse, Left Posterior Tibial Pulse, Right Radial Pulse and Left Radial Pulse Lower Extremity Edema: None: Left and +1: Right Psych Appearance: grossly normal Mental Status: mental status grossly normal Affect: normal affect Speech and Movement: speech and movement normal Attitude: cooperative Results Lab / Micro Data 11/23/24 16:05 11/23/24 16:05 Assessment & Plan Assessment/Plan (1) Recurrent deep vein thrombosis (DVT): (2) Deep vein thrombosis (DVT) of right lower extremity: PLAN: Plan Will start therapeutic weight-based heparin drip now. aPTTs per protocol. Repeat CBC in the morning. Plan for venogram in the [facility] tomorrow at 0800. Continue heparin until patient is in the [facility]. NPO after midnight. Charges/Coding Visit Charges Inpatient E&M: 71428 Init Hosp L1
[2024-11-23 16:05] VITALS: BMI 30.7
[2024-11-23 16:21] LABS: Hematocrit 43.3 % (40-54); Hemoglobin 14.9 g/dL (13.0-16.5); Mean Corp Hgb Conc 34.4 g/dL (32-36); Mean Corpuscular Volume 92.9 fL (80-94); Mean Platelet Vol. 9.4 fl (6.2-12.0); Platelet Count 247 K/mm3 (150-450); RBC Distribution Width SD 44.1 fl (35.1-43.9); Red Blood Count 4.66 M/mm3 (4.6-6.2); White Blood Count 5.5 K/mm3 (4.4-11.0)
[2024-11-23 16:44] LABS: Partial Thromboplast Time 29.5 Seconds (24.1-36.2)
[2024-11-23 16:57] LABS: Anion Gap 10 (5-15); BUN 15 mg/dL (4-19); BUN/Creat Ratio 13.2 RATIO (10-20); Carbon Dioxide 25.7 mmol/L (21.0-32.0); Chloride 107 mmol/L (98-108); Creatinine, Serum 1.13 mg/dL (0.70-1.20); EST Glomerular Filtration Rate 75 (>60); Estimated Creatinine Clearance 90.83 ml/min (50-250); Glucose 92 mg/dL (70-99); Potassium 4.2 mmol/L (3.3-5.1); Sodium Level 143 mmol/L (133-145)
[2024-11-23 17:00] VITALS: BP 158/105; PULSE 96; RESP 18; TEMP 37; O2SAT 95
[2024-11-23] MEDS: 0.9% Normal Saline (1000mL) 1,000 ML 50 ML IV (17:16)
[2024-11-23] MEDS: HEPARIN/D5w 25,000 UNITS 25,000 UNITS/250 ML IV.SOLN. 15 UNITS CONT INF (17:50)
[2024-11-23] MEDS: Budesonide Respules 0.5 MG/2 ML AMPUL.NEB. INHALATION (20:08)
[2024-11-23] MEDS: Albuterol 2.5 MG/3 ML VIAL.NEB. INHALATION (20:08)
[2024-11-23 20:10] VITALS: PULSE 93; RESP 18; O2SAT 97
[2024-11-23] MEDS: oxyCODONE 5 MG Tablet PO (21:38)
[2024-11-23 22:00] VITALS: BP 134/99; PULSE 95; RESP 18; TEMP 36.7; O2SAT 97
[2024-11-24] VITALS (12 sets, daily range): BP systolic 119–147; BP diastolic 78–98; PULSE 64–102; RESP 14–20; TEMP 36.6–37; O2SAT 94–99
[2024-11-24] MEDS: Acetaminophen 325 MG Tablet 650 MG PO ×2 (00:15→14:17)
[2024-11-24 01:35] LABS: Partial Thromboplast Time 60.7 Seconds (24.1-36.2)
[2024-11-24] MEDS: Albuterol 2.5 MG/3 ML VIAL.NEB. INHALATION ×2 (07:01→12:40)
[2024-11-24] MEDS: Budesonide Respules 0.5 MG/2 ML AMPUL.NEB. INHALATION (07:01)
[2024-11-24 07:04] LABS: Absolute Lymphocyte Count 1.89 X10^3/uL (0.83-4.51); Absolute Neutrophil Count 3.1 X10^3/uL (2.0-7.7); Basophil# 0.05 X10^3/uL; Basophil% 0.8 % (0-1); Eosinophil# 0.15 X10^3/uL; Eosinophils% 2.5 % (0-5); Hematocrit 40.6 % (40-54); Hemoglobin 13.8 g/dL (13.0-16.5); Lymphocyte # 1.89 X10^3/ul (0.83-4.51); Mean Corpuscular Hgb 31.9 pg (27.0-32.0); Mean Platelet Vol. 9.8 fl (6.2-12.0); Monocyte# 0.74 X10^3/uL; Monocyte% 12.5 % (0-10); NRBC Flagged by Analyzer 0 % (0-5); Neutrophil # 3.07 X10^3/uL (2.7-7.7); Platelet Count 217 K/mm3 (150-450); RBC Distribution Width CV 13.2 % (11.6-14.6); RBC Distribution Width SD 45.1 fl (35.1-43.9); Red Blood Count 4.32 M/mm3 (4.6-6.2); White Blood Count 5.9 K/mm3 (4.4-11.0)
--- NOTE | 2024-11-24 07:39 | NURSING ---
Report called down to [facility].
[2024-11-24 07:53] LABS: Partial Thromboplast Time 62.4 Seconds (24.1-36.2)
[2024-11-24] MEDS: HEPARIN/D5w 25,000 UNITS 25,000 UNITS/250 ML IV.SOLN. 5 UNITS CONT INF (13:15)
--- NOTE | 2024-11-24 13:30 | CASEMGMT ---
SHELIBE BACK assessment: SHELBIE BACK to room to meet with patient for initial transition planning/care coordination assessment. SHELBIE BACK introduced self and role at [facility], pt voices understanding and consents to assessment at this time. Pt is sitting up in bed in no distress on room air at this time. Pt is A/O at this time and answers all questions appropriately at this time. Pt's sig other, Honey Pillai, son, and another family member @ bedside and pt agreeable to them being present during assessment. Care providers, pharmacy, and demographics verified at this time. PCP: Dr Thomas Specialists: Dr Lombardi-vascular. Dr Crowley, hematology. Preferred Pharmacy: [facility] @ [place]. Otherwise, goes to [facility]. Insurance: [employer] A/B. Pt used to have NOHELIA, but does not currently. He states it has been a long time since applying and he is not sure if he would qualify or not, but he would like to talk w/someone re: this. Call placed to [employer] rep and she was notified. Prescription Benefit: Yes Living Will/HPOA: Pt states does not have LW/HPOA and declines info or wanting to complete at this time. Made aware this can be done as an OP with SW if he would like to do at a later time. LNOK: Pt has 3 adult sons: Pablito, Rigo, and Jono. Honey Pillai, sig other. Pt states he also has 2 children under age 18 who are in foster-care. Living Arrangements: Pt lives w/his sig other, Honey, in one-story home w/1-3 steps to enter. Independent. Transportation: Pt states he drives but vehicle is not working right now. Honey does not drive. Pt has a friend that can transport him when needed. DME: Pt used to have a CPAP, but states it was stolen. He initially got the CPAP ~ 2018/2018. He has not f/u to see if he can get another one. SHELBIE BACK advised him to f/u to see if his insurance may cover for another one and made aware, if they will, he most likely will need new sleep studies. He voices understanding. Pt uses no other DME and denies needs. HHC/SNF: Pt states no hx of HHC or SNF in the past. Pt wishes to discharge home and denies having any concerns w/going home. Pt states he was on Lovenox prior to admission, has sufficient supply of this @ home, and feels comfortable continuing to give injections to self. Pt and family deny having further discharge needs or concerns. CM to follow for any further discharge planning/needs. Advised pt and family to ask for CM if any further questions/concerns arise, voices understanding. Plan: Home Katalina AYOUB RN CM
--- NOTE | 2024-11-24 13:32 | CHAPLAIN ---
Type of Pastoral Visit _x__ Initial Visit ___ Follow-up Visit ___ On-call Visit ___ General Patient Visit ___ Spiritual Assessment ___ Family Conference ___ Bereavement ___ Rapid Response ___ Code Blue ___ Other (describe below) Pastoral Care Referral From _x__ Patient ___ Family ___ Nurse ___ Physician ___ Audiometric Technician ___ Stopper Grinder ___ Other (describe below) Sacrament/Intervention _x__ Active listening ___ Anointing ___ Confucianist ___ Bereavement ___ Communion ___ Aleyda exploration ___ _x__ Life review _x__ Prayer ___ Reconciliation ___ Sacrament of Sick _x__ Supportive presence ___ Wedding ___ Other (describe below) Pastoral Comments patient had four family members in the room; pt is offered support and he immediately speaks with frustration on 'why can't they figure out what is going on and I have had this same problem for years and they won't tell me what is needed to fix it'; pt says that he is retired now from the work that he loved due to his health; pt is offered support and a open questions at how he can find more peace and enjoyment in his new season of life; pt says that he loves to fish and go camping so the topic of conversation shifted to these things; pt is accepting of prayer as a couple family members say yes first;
[2024-11-24] MEDS: oxyCODONE 5 MG Tablet PO (14:17)
[2024-11-24] MEDS: 0.9% Normal Saline (1000mL) 1,000 ML 50 ML IV (14:18)
--- NOTE | 2024-11-24 17:07 | PCM.DC.SUM ---
Providers Date of Admission: 11/23/24 Primary Care Physician: Dr. Troy Thomas DO Reason For Visit: HEPARIN BRIDGE ,LE DVT Diagnosis Discharge Diagnosis (1) Recurrent deep vein thrombosis (DVT): Status: Acute Code(s): I82.409 - Acute embolism and thrombosis of unspecified deep veins of unspecified lower extremity (2) Deep vein thrombosis (DVT) of right lower extremity: Status: Acute Code(s): I82.401 - Acute embolism and thrombosis of unspecified deep veins of right lower extremity Plan Will start therapeutic weight-based heparin drip now. aPTTs per protocol. Repeat CBC in the morning. Plan for venogram in the process laboratory specialist tomorrow at 0800. Continue heparin until patient is in the process laboratory specialist. NPO after midnight. Medications at Discharge Home Medications albuterol sulfate 90 mcg/actuation aerosol inhaler (ProAir HFA) 2 puff inhalation Q4H PRN PRN Sob &/Or Wheezing 11/29/15 budesonide-formoterol HFA 80 mcg-4.5 mcg/actuation aerosol inhaler (Symbicort) 2 puff inhalation BID COPD 11/29/15 acetaminophen 325 mg tablet 650 mg (2 x 325 mg) PO Q6H PRN PRN Pain 1-10 Or Fever >100.7 #0 tabs 11/24/24 enoxaparin 100 mg/mL subcutaneous syringe 100 mg subcut Q12 #0 mL 11/24/24 oxycodone 5 mg tablet 5 mg PO Q8H PRN PRN Pain Score 4-10 2 days #6 tabs 11/24/24 Hospital Course Summary of Care Provided Hospital Course: Mendoza Victor is a 59 y/o male who was admitted for heparin bridging to planed venogram which he underwent today 11/24/24. Venogram was negative for any significant central venous compression that would be causing his recurrent DVT. Thrombectomy was not indicated due to clot being too distal. No intervention was performed. He was transitioned back to heparin without any adverse bleeding from the groin puncture site and then transitioned back to lovenox. He is medically stable for discharge home. He will continue with lovenox as prescribed. Physical Exam Const oriented x3 and no apparent distress Resp normal respiratory effort Cardio regular rate and regular rhythm Extremity Extremity Narrative: Groin access site without ecchymosis, bleeding, focal edema Skin no rashes or lesions noted Weight / BMI Weight Weight: 232 lb 7.639 oz Body Mass Index (BMI) 30.7 ABG / Lab / Microbiology Data 11/24/24 06:20 11/23/24 16:05 Laboratory: Laboratory Results - last 24 hr 11/23/24 23:35: APTT 60.7 H 11/24/24 06:20: WBC 5.9, RBC 4.32 L, Hgb 13.8, Hct 40.6, MCV 94.0, MCH 31.9, MCHC 34.0, RDW Std Deviation 45.1 H, RDW Coeff of Vasu 13.2, Plt Count 217, MPV 9.8, Immature Gran % (Auto) 0.200, Neut % (Auto) 52.0, Lymph % (Auto) 32.0, [place] % (Auto) 12.5 H, Eos % (Auto) 2.5, Baso % (Auto) 0.8, Absolute Neuts (auto) 3.1, Absolute Lymphs (auto) 1.89, Nucleated RBC % 0, APTT 62.4 H D/C Instructions Discharge Diet: No restrictions May shower in (days): 1 (Do not submerge in water such as taking a bath or swimming for 2 weeks) Weight Bearing Status: Weight bearing as tolerated Lifting Restricted to (Lbs): 20 Lifting Restrictions: Do not lift greater than 20 pounds for 2 weeks Call your doctor if your incision/area has: Sudden Increased Bleeding, Increased Pain/ Swelling and Foul Smelling Discharge Call your doctor if you observe: Fever of 101 or Higher and Uncontrolled pain Remove Dressing in: 1 day DC O2, CPAP, BIPAP Needs Home O2 Discharge instructions: No Please Follow Up With: Lizzette Perez PA When: 12/15/24 Meaningful Use Info Meaningful Use Meaningful Use Diagnoses (Choose all that apply): VTE Ischemic Stroke Statin Dosing Therapy Reference: STATIN DOSE THERAPY REFERENCE: * Patients > 75 years receive moderate or high dose statin therapy. * Patients 75 years or YOUNGER should receive HIGH intensity statin dose unless contraindicated. You will be required to document reason for non-treatment if statin daily dose does not meet guidelines. HIGH DOSE STATIN THERAPY DAILY Atorvastatin > than or = to 40 mg Rosuvastatin > than or = to 20 mg Amlodipine + Atorvastatin > than or = to 2.5/40 mg Ezetimibe + Simvastatin 10/80 mg Simvastatin 80mg VTE Anticoag overlap given w/in hospital stay or rx'd at dc?: Yes Pt receive overlap for 5 days?: Yes Discharge Plan Admission Admit Date/Time: 11/23/24 15:07 Attending Provider: Arsalan Lombardi Primary Care Provider: Troy Thomas Discharge Orders/Prescriptions Prescriptions: New acetaminophen 325 mg Tablet 650 mg PO Q6H PRN PRN (Reason: Pain 1-10 Or Fever >100.7) Qty: 0 0RF oxycodone 5 mg Tablet 5 mg PO Q8H PRN PRN (Reason: Pain Score 4-10) 2 Days Qty: 6 0RF enoxaparin 100 mg/mL Syringe 100 mg subcut Q12 Qty: 0 0RF Continued albuterol sulfate [ProAir HFA] 1 PUFF inhaler 2 puff inhalation Q4H PRN PRN (Reason: Sob &/Or Wheezing) Patient Comments: SHORTNESS OF BREATH budesonide-formoterol [Symbicort] 1 INHALER inhaler 2 puff inhalation BID Patient Comments: BREATHING Referrals / Follow Up: Troy Thomas DO [Primary Care Provider] - Disposition Disposition (needs filled in before D/C Order can be placed): Home, Self Care
[2024-11-24] MEDS: Enoxaparin 100 MG/ML Syringe SC (17:33)
--- NOTE | 2024-11-24 18:57 | PCM.OPRPT ---
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 He presents now for venogram to assess for central venous obstruction as a possible contributing factor to his thrombotic events. Description of procedure: Upon obtaining form consent and verification correct patient procedure site patient was taken to the [facility] he was positioned prepped and draped in usual sterile fashion. Timeout was performed consultation was administered Versed and fentanyl. Skin overlying the right common femoral vein was anesthetized with 1% lidocaine the vessel accessed with a micropuncture needle and wire under ultrasound guidance. This was exchanged for micropuncture sheath through which injection ilio caval venogram was performed revealing patent iliac veins and vena cava with brisk contrast transit. There was mild luminal reduction in the external iliac vein that appeared mild in severity. There were no significant pelvic collaterals visualized. Through the micropuncture sheath a [employer] wire was advanced and the micropuncture sheath exchanged for a [place] sheath. Through the 10 [place] sheath intravascular ultrasound probe was advanced and recorded pullback performed of the IVC, right common iliac vein, right external iliac vein. This revealed a 34% diameter reduction of the superior third of the external iliac vein due to external compression from the bifurcation of the iliac arteries. There was no significant dilation inferior to this. The degree of compression was very mild and did not reach threshold for treatment so this point wires and catheters were withdrawn. The sheath was then withdrawn and manual pressure held for 5 minutes until hemostasis was obtained. The patient was then taken to the PCU for bedrest and to resume his anticoagulation with plan discharged to home later in the day. Surgical Findings: See above Complications Complications: No
== END 2024-11-24 18:00 | disposition home or self-care (01) | DRG 301 ==
PROVIDERS: Physician Assistant; Admitting Provider Surgery Trauma Surgery; PCP Family Medicine; Visit Provider Surgery Trauma Surgery
DX: I82.401 Acute embolism and thrombosis of unspecified deep veins of right lower extremity (principal); M19.90 Unspecified osteoarthritis, unspecified site; Z79.01 Long term (current) use of anticoagulants; R22.41 Localized swelling, mass and lump, right lower limb; Z87.01 Personal history of pneumonia (recurrent); Z79.51 Long term (current) use of inhaled steroids; Z98.890 Other specified postprocedural states
CPT/HCPCS: 36005; 36010; 36415; 37252; 37253; 75820; 75825; 76937; 80048; 85025; 85027; 85379; 85730; 93005; 94640; 99152; 99153; C1753; C1769; C1894; Q9967